=== PATIENT | male | born 1950 | race Caucasian/White ===

== ENCOUNTER 2023-07-28 08:25 | Observation (INO) | payer MEDICARE, OTHER, SELFPAY ==
[2023-07-28] VITALS (10 sets, daily range): BP systolic 115–149; BP diastolic 64–89; PULSE 63–79; RESP 15–26; TEMP 36.5–36.7; O2SAT 95–99; BMI 31.4
--- NOTE | 2023-07-28 08:46 | CT_ITS ---
WS: [id number] CT HEAD NONCONTRAST HISTORY: near syncope/headache TECHNIQUE: Contiguous axial imaging performed through the brain in 3 mm imaging. Bone and soft tissue windows. Sagittal and coronal reformats reviewed. All CT scans at [facility] use at least on e of these dose optimization techniques: automated exposure control; mA and/or kV adjustment per gail ent size (includes targeted exams where dose is matched to clinical indication); or iterative reconst ruction. DLP: 1051.43 mGy.cm COMPARISON: 09/18/2013 Area of decreased attenuation involving the inferior medial RIGHT temporal lobe. There is no associat ed hemorrhage. There is loss of the kim-white matter differentiation. There is an additional smaller area of decreased attenuation in the RIGHT cerebellum. No additional abnormalities. There is mild vo lume loss and small vessel ischemic disease otherwise. There is near very increased density in the region of the RIGHT posterior cerebral artery which appea rs calcified and may be from old thrombus which is calcified. Ventricles: Normal size with no hydrocephalus. No inferior displacement of the cerebellar tonsils. Paranasal sinuses: As visualized are clear. Mastoid air cells: Well pneumatized. Calvarium and scalp: Skull is intact with no soft tissue edema or swelling. IMPRESSION: 1. No acute intracranial hemorrhage. 2. Subacute to remote RIGHT inferomedial temporal lobe infarct. This is from a branch of the RIGHT PC A. 3. Additional subacute to remote infarct involving a portion of the RIGHT posterior superior cerebell um. 4. Mild volume loss and atrophy and small vessel ischemic disease. CT/CT head wo con* [id number] Recommendation: Follow-up MRI brain. Notified Wei Fulton DO at 07/28/2023 10:04 AM.
--- NOTE | 2023-07-28 08:52 | ECG_ITS ---
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 Measurements Intervals [place] Rate: 71 P: 70 PA: 158 QRS: 71 QRSD: 93 T: 52 QT: 389 QTc: 425 Interpretive Statements SINUS RHYTHM WITH OCCASIONAL SUPRAVENTRICULAR PREMATURE COMPLEXES No previous ECG available for comparison Electronically Signed On 07-28-2023 10:10:14 CDT by Carlita Soriano M.D. [id number]
--- NOTE | 2023-07-28 08:54 | ED_ITS ---
HPI - Dizziness General: Chief Complaint: Dizziness Stated Complaint: dizziness/headache Time Seen by Provider: 07/28/23 08:49 Source: patient Mode of arrival: ambulatory History of Present Illness: HPI Narrative: 72-year-old male presents emergency room with lightheadedness dizziness this began 2 days ago sudden onset of dizziness and near syncopal episode while walking. He did not really fall he was able to get himself to the ground without falling since then has had a bad headache with intermittent dizziness is better when he lays still and worse when he tries to move his head or walk. He has been unsteady with his gait. He has not had any nausea or vomiting associated with this. He is not on any anticoagulants no falls or head trauma. MD elicited complaint: dizziness and lightheadedness Onset (ago): day(s) (2) Timing: sudden onset Severity: severe Description: room spinning and difficulty walking Exacerbating factors: movement/ambulation and change in body position Relieving factors: remaining still Associated symptoms: Denies abnormal vaginal bleeding, change in hearing, chest pain, chills, cough, diaphoresis, ear discharge, ear pressure, fevers/chills, headache(s), malaise, nausea, nasal congestion, palpitations, rash, short of breath, syncope, tinnitus, vomiting or weakness Associated neuro symptoms: Deny confusion, difficulty speaking, dysphagia, diplopia, extremity weakness, facial numbness, facial weakness, gait changes, numbness in extremities or visual changes Review of Systems Const: Denies: fever(s), chills, malaise or diaphoresis ENMT: Denies: ear discharge, change in hearing, tinnitus or nasal congestion Card: Denies: chest pain, palpitations or syncope Resp: Denies: dyspnea GI: Denies: abdominal pain, nausea, vomiting or dysphagia : Denies: dysuria, urinary frequency or urinary urgency Musc: Denies: neck pain or back pain Skin/Breast: Denies: rash Neuro: Denies: headache(s), numbness in extremities or confusion PFS ED PFSH: Medical History (Updated 07/28/23 @ 15:42 by Wei Fulton DO) Hypertension Seizure Remote history, last seizure 1971 Tobacco dependency Surgical History (Updated 07/28/23 @ 12:47 by Romaine Pepe MD) History of hernia surgery Family History (Updated 07/28/23 @ 12:47 by Romaine Pepe MD) Denies family history of Stroke Social History (Updated 07/28/23 @ 12:48 by Romaine Pepe MD) Smoking and tobacco/nicotine status: current every day tobacco/nicotine user Alcohol intake: never Physical Exam Const: COMMON NORMALS: no acute distress GENERAL APPEARANCE: cooperative and comfortable ORIENTATION/CONSCIOUSNESS: Yes awake, Yes oriented to person, Yes oriented to place and Yes oriented to time HENMT: COMMON NORMALS: normocephalic, atraumatic and hearing grossly normal bilaterally HEAD & SCALP: normocephalic and atraumatic Resp: COMMON NORMALS: normal respiratory effort, No retractions, No use of accessory muscles and clear to auscultation bilaterally AUSCULTATION: clear to auscultation bilaterally Cardio: COMMON NORMALS: regular rate, regular rhythm and No murmurs present (Cardio) RATE: regular rate RHYTHM: regular rhythm GI: COMMON NORMALS: Soft to palpation and No hepatosplenomegaly present AUSCULTATION: Yes normoactive bowel sounds PALPATION: Yes Soft to palpation, No Tenderness to palpation present (GI), No Guarding due to palpation present (GI) and Yes No hepatosplenomegaly present Extremity: COMMON NORMALS: normal to inspection, capillary refill normal, no clubbing, cyanosis or edema, no calf tenderness and no pedal edema Neuro: SENSORIUM/ORIENTATION: Yes oriented to person, Yes oriented to place and Yes oriented to time Skin: COMMON NORMALS: no rashes or lesions noted GENERAL SKIN EXAM: no rashes or lesions noted Course Vital Signs: Vital signs: Vital Signs Temperature 97.8 F 07/28/23 14:57 Pulse Rate 78 07/28/23 15:12 Respiratory Rate 16 07/28/23 15:12 Blood Pressure 127/64 07/28/23 14:57 Pulse Oximetry 97 07/28/23 15:12 Oxygen Delivery Me thod Room Air 07/28/23 15:12 MDM - Dizziness Medical Decision Making Patient when lying down has no ataxia when tries to walk has some difficulty and also sitting up incurs dizziness with head movement itself does not. CT shows subacute posterior stroke also a right temporal stroke. He has no symptoms of the right temporal stroke. Discussed findings with Dr. Cornelius from radiology. He is outside the window for any treatment either embolectomy or thrombolysis. Will admit for further evaluation and initiation of therapies. Discussed with hospitalist orders written. Medical Records I reviewed the patient's medical records. Lab Data I reviewed the patient's lab results. 07/28/23 09:00 07/28/23 09:[address] 07/28/23 08:46 Recommendation: Follow-up MRI brain. Notified Wei Fulton DO at 07/28/2023 10:04 AM. Laboratory Results WBC 4.47 10^3/uL (3.29-11.43) 07/28/23 09:00 RBC 4.88 10^6/uL (3.85-5.65) 07/28/23 09:00 Hgb 16.20 g/dL (11.27-16.99) 07/28/23 09:00 Hct 46.1 % (37-53) 07/28/23 09:00 MCV 94.5 fl (82-101) 07/28/23 09:00 MCH 33.2 pg (27-33) H 07/28/23 09:00 MCHC 35.1 g/dL (30-55) 07/28/23 09:00 RDW 13.8 % (12.1-15.1) 07/28/23 09:00 Plt Count 220 10^3/cmm (157-399) 07/28/23 09:00 MPV 8.4 fL (7.4-10.4) 07/28/23 09:00 Neut % (Auto) 68.2 % 07/28/23 09:00 Lymph % (Auto) 19.5 % 07/28/23 09:00 [place] % (Auto) 10.1 % 07/28/23 09:00 Eos % (Auto) 1.1 % 07/28/23 09:00 Baso % (Auto) 0.9 % 07/28/23 09:00 Neut # (Auto) 3.05 10^3/uL (1.8-7.7) 07/28/23 09:00 Lymph # (Auto) 0.9 10^3/uL (0.8-4.8) 07/28/23 09:00 [place] # (Auto) 0.5 10^3/uL (0.2-0.9) 07/28/23 09:00 Eos # (Auto) 0.1 10^3/uL (0.0-0.8) 07/28/23 09:00 Baso # (Auto) 0.0 10^3/uL (0.0-0.1) 07/28/23 09:00 Nucleated RBC % (auto) 0 % 07/28/23 09:00 Nucleated RBCs # 0.0 /100WBC 07/28/23 09:00 Sodium 135 mmol/L (136-145) L 07/28/23 09:00 Potassium 3.1 mmol/L (3.5-5.1) L 07/28/23 09:00 Chloride 100 mmol/L (98-107) 07/28/23 09:00 Carbon Dioxide 27 mmol/L (22-29) 07/28/23 09:00 Anion Gap 11.1 (5-19) 07/28/23 09:00 BUN 9 mg/dL (8-23) 07/28/23 09:00 Creatinine 0.8 mg/dL (0.7-1.2) 07/28/23 09:00 GFR Calculation Not Reportable 07/28/23 09:00 Glucose 100 mg/dL (65-115) 07/28/23 09:00 Calculated Osmolality 279 mOsm/kg (285-295) L 07/28/23 09:00 Calcium 8.8 mg/dL (8.5-10.5) 07/28/23 09:00 Magnesium 1.8 mg/dL (1.7-2.3) 07/28/23 09:00 Total Bilirubin 0.8 mg/dL (0.15-1.2) 07/28/23 09:00 AST 14 U/L (0-40) 07/28/23 09:00 ALT 7 U/L (0-41) 07/28/23 09:00 Alkaline Phosphatase 52 U/L (40-130) 07/28/23 09:00 Total Protein 6.3 g/dL (6.6-8.7) L 07/28/23 09:00 Albumin 3.6 g/dL (3.5-5.2) 07/28/23 09:00 Globulin 2.7 g/dL (1.3-4.6) 07/28/23 09:00 TSH 0.70 uIU/mL (0.27-4.20) 07/28/23 09:00 Urine Color Yellow (Yellow) 07/28/23 09:54 Urine Appearance Clear (CLEAR) 07/28/23 09:54 Urine pH 7 (5-7) 07/28/23 09:54 Ur Specific [place] 1.015 (1.005-1.030) 07/28/23 09:54 Urine Protein Neg (Negative) 07/28/23 09:54 Urine Glucose (UA) Norm (Normal) 07/28/23 09:54 Urine Ketones Negative (Negative) 07/28/23 09:54 Urine Blood Neg (Negative) 07/28/23 09:54 Urine Nitrate Negative (Negative) 07/28/23 09:54 Urine Bilirubin Neg (Negative) 07/28/23 09:54 Urine Urobilinogen Norm mg/dL (Negative) 07/28/23 09:54 Ur Leukocyte Esterase Negative (Negative) 07/28/23 09:54 All radiology interpretation(s) finalized by discharge Discharge Plan Discharge Patient Disposition: Admitted As Inpatient Admit Provider: Romaine Pepe Clinical Impression: Cerebellar stroke Condition: Stable Coding Level of Care Code 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
[2023-07-28 09:07] LABS: Basophils % 0.9 %; Eosinophils # 0.1 10^3/uL (0.0-0.8); Eosinophils % 1.1 %; Hematocrit 46.1 % (37-53); Lymphocytes # 0.9 10^3/uL (0.8-4.8); Lymphocytes % 19.5 %; Mean Corpuscular HGB Conc 35.1 g/dL (30-55); Mean Corpuscular Hemoglobin 33.2 pg (27-33); Mean Corpuscular Volume 94.5 fl (82-101); Mean Platelet Volume 8.4 fL (7.4-10.4); Monocytes # 0.5 10^3/uL (0.2-0.9); Monocytes % 10.1 %; Neutrophils # 3.05 10^3/uL (1.8-7.7); Neutrophils % 68.2 %; Nucleated Red Blood Cells % 0 %; Platelet Count 220 10^3/cmm (157-399); Red Blood Count 4.88 10^6/uL (3.85-5.65); Red Cell Distribution Width 13.8 % (12.1-15.1); White Blood Count 4.47 10^3/uL (3.29-11.43)
[2023-07-28 09:27] LABS: Alanine Aminotransferase 7 U/L (0-41); Albumin Level 3.6 g/dL (3.5-5.2); Alkaline Phosphatase 52 U/L (40-130); Anion Gap 11.1 (5-19); Aspartate Amino Transferase 14 U/L (0-40); Blood Urea Nitrogen 9 mg/dL (8-23); Calcium 8.8 mg/dL (8.5-10.5); Carbon Dioxide 27 mmol/L (22-29); Chloride 100 mmol/L (98-107); Globulin 2.7 g/dL (1.3-4.6); Glucose 100 mg/dL (65-115); Osmolality Calculated 279 mOsm/kg (285-295); Potassium 3.1 mmol/L (3.5-5.1); Sodium 135 mmol/L (136-145); Total Bilirubin 0.8 mg/dL (0.15-1.2); Total Protein 6.3 g/dL (6.6-8.7)
[2023-07-28 10:27] LABS: Add Urine Microscopic? NO; Charge for UA Resulting for Rev
[2023-07-28 10:36] LABS: Urine Appearance Clear (CLEAR); Urine Color Yellow (Yellow)
[2023-07-28 10:37] LABS: Bilirubin Urine Neg (Negative); Blood Urine Neg (Negative); Glucose Urine UA Norm (Normal); Ketones Urine Negative (Negative); Leukocyte Esterase Urine Negative (Negative); Nitrate Urine Negative (Negative); Protein Urine Neg (Negative); Specific Gravity, Urine 1.015 (1.005-1.030); Urobilinogen Urine Norm (Negative); pH Urine 7 (5-7)
[2023-07-28] MEDS: aspirin 81 mg Chew Tablet 324 MG PO (11:16)
--- NOTE | 2023-07-28 12:16 | P.HP_ITS ---
Documented by User: Catia Willett 07/28/23 13:09 Providers/Chief Complaint Admitting Physician: Romaine Pepe MD Primary Care Provider: Hollis Leach DO Chief Complaint: dizziness/headache/vision impairment History of Present Illness Adan Meza is a 72 year old male who presented to the emergency department for weakness, dizziness, and headache. Friday, Mr. Meza stood up to turn his TV off when he started to feel weak in his legs and off balance . Without loss of consciousness, he fell to the ground. He denies any injuries that came from the fall. Since this transpired, he says he has been able to move around his house without much trouble, but he has continued to have consistent headaches described as tension headaches that only improve minimally with ibuprofen but are otherwise constant. He also states he will give fuzzy lines in his vision at times, but denies any other visual symptoms and has no photophobia. He has been nauseated once, but has not vomited. He is without chest pain, shortness of breath, abdominal pain, or any concerns of weakness currently. 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 In the ED, he got a CT of his head while in the ED and a 325 aspirin. Review of Systems General: Reports: 10 or more systems reviewed and unremarkable except in HPI and below Const: Denies: fever(s) or chills Eyes: Reports: blurry vision; Denies: photophobia Card: Denies: chest pain, palpitations or edema Resp: Denies: dyspnea GI: Reports: nausea; Denies: abdominal pain, vomiting, diarrhea, constipation or hematochezia : Denies: difficulty urinating or dysuria Musc: Denies: neck pain Neuro: Reports: headache(s) and dizziness; Denies: numbness in extremities, weakness in extremities, sensory changes, difficulty walking or Slurred speech present Medications/Allergies Home Medications Medication Instructions Recorded Confirmed Last Taken Type albuterol sulfate 90 mcg/actuation 2 inh inhalation BID PRN Shortness 07/28/23 07/28/23 Unknown History aerosol inhaler (Ventolin HFA) Of Breath hydrochlorothiazide 25 mg tablet 25 mg PO DAILY 07/28/23 07/28/23 Unknown History sildenafil (pulm.hypertension) 20 See Rx Instructions .Route .COMPLEX 07/28/23 07/28/23 Unknown History mg tablet Allergies Allergy/AdvReac Type Severity Reaction Status Date / Time No Known Allergies Allergy Verified 07/28/23 08:45 PFSH Acute PFSH: Medical History (Updated 07/28/23 @ 12:51 by Romaine Pepe MD) Hypertension Seizure Remote history, last seizure 1972 Tobacco dependency Surgical History (Updated 07/28/23 @ 12:47 by Romaine Pepe MD) History of hernia surgery Family History (Updated 07/28/23 @ 12:47 by Romaine Pepe MD) Denies family history of Stroke Social History (Updated 07/28/23 @ 12:48 by Romaine Pepe MD) Smoking and tobacco/nicotine status: current every day tobacco/nicotine user Alcohol intake: never Vitals/I&O/Wt Last Vital Signs Temp 98.0 F 07/28/23 08:41 Pulse 68 07/28/23 11:00 Resp 26 H 07/28/23 10:15 BP 133/87 07/28/23 11:00 Pulse Ox 99 07/28/23 11:00 O2 Del Method Room Air 07/28/23 08:41 Weight last 48 hrs Weight 88.451 kg Physical Exam Narrative: General: pt is alert, cooperative and conversant. He is accompanied by his brother in law. Neck: supple, no lymphadenopathy, no thyromegaly. Cardiac: normal rate, rhythm. No murmurs appreciated. Respiratory: clear to auscultation. Equal chest expansion. Abdomen: normoactive bowel sounds in all 4 quadrants. No abdominal tenderness, no obvious organomegaly. : deferred. Extremites: 2+ pulses in upper and lower extremities. Brisk capillary refill. Skin: no cyanosis, bruising, edema. Neurologic: oriented x 4, CN II-XII intact. Cerebellar function intact. 5/5 muscle strength in upper and lower extremities. Normal sensation in upper and lower extremities. Data 07/28/23 09:00 07/28/23 09:00 Other Labs: Protein 6.3 LFTs normal. TSH ordered. UA negative. 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 MR angio head and neck with/without contrast ordered. CV echo ordered. EKG by my read shows sinus rhythm with occasional PACs, normal axis, intervals. 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 Possibly experiencing upper extremity ataxia as well. Additional stroke of concern was in the right inferior medial temporal lobe infarct. Ordered MR angio of head and neck with and without contrast per radiology recommendation. They are able to do this exam today, therefore a CTA of the head and neck are not warranted. CXR ordered for part of routine stroke work-up Telemetry ordered to monitor for signs of arrhythmias that could predispose to stroke. Consider Event monitor on discharge. CV echo ordered to assess for any predisposing factors of heart that could lead to stroke, valvular abnormalities, thrombus seen Lipid panel, TSH ordered. Start aspirin tomorrow (already given today), plavix, and statin for stroke prophylaxis. Hold BP medications for permissive HTN for possible stroke. CBC, BMP daily Hydration Patient has complained of headache. This is likely secondary to CVA. After permissive hypertension likely restart medication for blood pressure tomorrow if blood pressure is elevated. Note that he was only on hydrochlorothiazide. Arrange for therapy evaluations. (2) Hypokalemia: K+ low in ED. Supplement one time with 40 of KCl PO. Will continue to monitor for future need for further supplementation. BMP daily. (3) Tobacco dependency: Pt with history of smoking. Will provide education of tobacco effect on stroke prevention. Provide pt with nicotine patches as needed for smoking cessation. Coding Level of Care Code 26368 Diagnoses Cerebellar stroke I63.9 Hypokalemia E87.6 Tobacco dependency F17.200 Time Spent (min) 47 Documented by User: Romaine Pepe MD 07/28/23 13:10 Providers/Chief Complaint Chief Complaint: dizziness/headache/vision impairment Medications/Allergies Home Medications Medication Instructions Recorded Confirmed Last Taken Type albuterol sulfate 90 mcg/actuation 2 inh inhalation BID PRN Shortness 07/28/23 07/28/23 Unknown History aerosol inhaler (Ventolin HFA) Of Breath hydrochlorothiazide 25 mg tablet 25 mg PO DAILY 07/28/23 07/28/23 Unknown History sildenafil (pulm.hypertension) 20 See Rx Instructions .Route .COMPLEX 07/28/23 07/28/23 Unknown History mg tablet Allergies Allergy/AdvReac Type Severity Reaction Status Date / Time No Known Allergies Allergy Verified 07/28/23 08:45 PFSH Acute PFSH: Medical History (Updated 07/28/23 @ 12:51 by Romaine Pepe MD) Hypertension Seizure Remote history, last seizure 1971 Tobacco dependency Surgical History (Updated 07/28/23 @ 12:47 by Romaine Pepe MD) History of hernia surgery Family History (Updated 07/28/23 @ 12:47 by Romaine Pepe MD) Denies family history of Stroke Social History (Updated 07/28/23 @ 12:48 by Romaine Pepe MD) Smoking and tobacco/nicotine status: current every day tobacco/nicotine user Alcohol intake: never Physical Exam Narrative: General: pt is alert, cooperative and conversant. He is accompanied by his brother in law. Neck: supple, no lymphadenopathy, no thyromegaly. Cardiac: normal rate, rhythm. No murmurs appreciated. Respiratory: clear to auscultation. Equal chest expansion. Abdomen: normoactive bowel sounds in all 4 quadrants. No abdominal tenderness, no obvious organomegaly. : deferred. Extremites: 2+ pulses in upper and lower extremities. Brisk capillary refill. Skin: no cyanosis, bruising, edema. Neurologic: oriented x 4, CN II-XII intact. Cerebellar function intact. 5/5 musc le strength in upper and lower extremities. Normal sensation in upper and lower extremities. Slightly dizzy concerned about being dizzy upon standing but reports it is not present at this time when he stood. Orthostatics negative in the emergency department. Data 07/28/23 09:00 07/28/23 09:00 Other Labs: Protein 6.3 LFTs normal. TSH ordered. UA negative. 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 MR angio head and neck with/without contrast ordered. CV echo ordered. EKG by my read shows sinus rhythm with occasional PACs, normal axis, intervals. Chest x-ray was ordered which I will review as well. 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 Possibly experiencing upper extremity ataxia as well. Additional stroke of concern was in the right inferior medial temporal lobe infarct. Ordered MR angio of head and neck with and without contrast per radiology recommendation. They are able to do this exam today, therefore a CTA of the head and neck are not warranted. CXR ordered for part of routine stroke work-up Telemetry ordered to monitor for signs of arrhythmias that could predispose to stroke. Consider Event monitor on discharge. CV echo ordered to assess for any predisposing factors of heart that could lead to stroke, valvular abnormalities, thrombus seen Lipid panel, TSH ordered. Start aspirin tomorrow (already given today), plavix, and statin for stroke prophylaxis. Hold BP medications for permissive HTN for possible stroke. CBC, BMP daily Hydration Patient has complained of headache. This is likely secondary to CVA. After permissive hypertension likely restart medication for blood pressure tomorrow if blood pressure is elevated. Note that he was only on hydrochlorothiazide. (2) Hypokalemia: K+ low in ED. Supplement one time with 40 of KCl PO. Will continue to monitor for future need for further supplementation. BMP daily. Check magnesium level (3) Tobacco dependency: Plan Full code Lovenox for DVT prophylaxis Patient was seen with the medical student, exam was performed, and this note was fashioned with the medical student. Attestations Medical Necessity Statement*: Will require less than 2 midnight stay in for evaluation and treatment of CVA Diagnoses Cerebellar stroke I63.9 Hypokalemia E87.6 Tobacco dependency F17.200 Time Spent (min) 47
--- NOTE | 2023-07-28 12:30 | USCV_ITS ---
Adan Meza Age: 72 Gender: M : 1950 Exam Date: 07/28/2023 14:59 Ordering Phys: Romaine Pepe MD Technologist: Ariel Muhammad Exam Location: [facility] [place] Indication: cva BP: 123 / 69 HR: 66 Rhythm: Sinus Technical Quality: Adequate MEASUREMENTS (Male / Female) Normal Values 2D ECHO LV Diastolic Diameter PLAX 4.4 cm 4.2 - 5.9 / 3.9 - 5.3 cm LV Systolic Diameter PLAX 2.9 cm IVS Diastolic Thickness 1.0 cm 0.6 - 1.0 / 0.6 - 0.9 cm IVS Systolic Thickness 1.6 cm LVPW Diastolic Thickness 1.2 cm 0.6 - 1.0 / 0.6 - 0.9 cm LVPW Systolic Thickness 1.3 cm LVOT Diameter 2.0 cm LV Ejection Fraction 2D Teich 62.7 % LV Ejection Fraction MOD 2C 74.3 % LV Ejection Fraction 2C AL 74.9 % LA Diameter 3.7 cm IVC Diameter 1.3 cm M-MODE Aortic Annulus Diameter 3.7 cm LA Ao Ratio MM 1.1 MV E Point Septal Separation 1.6 cm DOPPLER AV Peak Velocity 142.7 cm/s LVOT Peak Velocity 131.0 cm/s AV Area Cont Eq vti 3.6 cm squared AV Area Cont Eq pk 3.0 cm squared MV Area PHT 1.8 cm squared Mitral E to A Ratio 0.9 MV E' Velocity 72.5 cm/s Mitral E to MV E' Ratio 23.7 Mitral E to LV E' Lateral Ratio 30.4 Mitral E to LV E' Septal Ratio 19.7 TR Peak Velocity 161.7 cm/s TR Peak Gradient 10.5 mmHg TV Peak E Velocity 78.0 cm/s Right Atrial Pressure 3.0 mmHg Pulmonary Artery Systolic Pressu 13.5 mmHg RV Acceleration Time 0.1 s FINDINGS Left Ventricle Left ventricle is normal in size. LV systolic function is normal with EF of 60 to 65%. No regional wall motion abnormalities are seen. Grade 1 diastolic dysfunction Right Ventricle Normal in size and function Right Atrium Normal in size Left Atrium Dilated Mitral Valve Severe mitral annular calcification. Trace mitral regurgitation. Moderate to severe mitral stenosis with mean gradient across mitral valve of 11mmHg. Mitral valve area by pressure half time of 1.77cm2 Aortic Valve Grossly normal. no significant stenosis. Tricuspid Valve Mild tricuspid regurgitation. Insufficient TR jet to calculate RVSP Pulmonic Valve Not well visualized Pericardium Normal Aorta Normal in size IVC Appears to be normal CONCLUSIONS LV systolic function is normal with EF of 60-65%. Grade 1 diastolic dysfunction Left atrial dilation Moderate to severe mitral stenosis with mean gradient across mitral valve of 11 mmHg and mitral valve area of 1.77cm2. Mild tricuspid regurgitation No comparison studies are available. Gatito Conti MD (Electronically Signed) Final Date: 28 July 2023 16:49 S
--- NOTE | 2023-07-28 12:36 | MR_ITS ---
WS: [id number] MRI HEAD WITHOUT CONTRAST TECHNIQUE: Sagittal T1, T2 axial, T2 axial FLAIR, axial and coronal T1 images, axial susceptibility w eighted imaging, axial diffusion weighted images, and coronal T2 images were obtained. CLINICAL INFORMATION: CVA COMPARISON: CT earlier today FINDINGS: Restricted diffusion compatible with acute ischemia involving the posterior medial temporal lobe exte nding into the parahippocampal gyrus. Additional restricted diffusion involving the superior posterio r parasagittal cerebellum. Additional small focus of restricted diffusion involving the RIGHT guzman radiata. Findings compatible with acute ischemia. This corresponds to the low-attenuation changes on the prior CT. Moderate edema in the RIGHT posterior mesial temporal lobe with mild localized mass effect. Mild ava a in the RIGHT parasagittal cerebellum. Fourth ventricle remains patent. Mild mass effect on the RIGH T temporal horn. Mild small vessel changes. Mild parenchymal volume loss. Evidence of chronic lacunar infarcts in the LEFT cerebellum. Normal vascular flow voids at the skull base. No extra-axial fluid collections. Para nasal sinuses are well aerated. Mastoid air cells are well aerated. Normal posterior nasopharynx. No hemosiderin on susceptibility-weighted images. Normal optic chiasm and pituitary infundibulum. IMPRESSION: 1. Acute ischemia involving the RIGHT posterior medial temporal lobe extending into the parahippocam pal gyrus and undersurface of the mesial temporal lobe. Moderate associated edema with mild localized mass effect. 2. Additional areas of acute ischemia involving the parasagittal superior cerebellum. 3. Additional punctate focus of acute ischemia involving the RIGHT centrum semiovale. 4. No midline shift. No hydrocephalus. 5. Mild small vessel changes with mild parenchymal volume loss. 6. Evidence of chronic lacunar infarcts in the LEFT cerebellum. Notified Romaine Pepe MD at 07/28/2023 4:16 PM.
--- NOTE | 2023-07-28 12:43 | MR_ITS ---
WS: [id number] MRA HEAD TECHNIQUE: Axial 3-D TOF images obtained with axial images and axial, sagittal, and coronal 2-D refor matted images. CLINICAL INFORMATION: cva COMPARISON: None. FINDINGS: Distal vertebral arteries are patent. Basilar artery is patent. Poor vascularity to the RIGHT [employer] ter ritory with attenuation of the RIGHT proximal [employer] vessel. Poor flow in the mid and distal segments. R IGHT superior cerebellar artery appears patent. Irregularity with some attenuation of the distal supe rior cerebellar artery concordant with the superior cerebellar infarct seen on the head MRI. Mild intracranial atheromatous disease. Severe stenosis at the LEFT P1-2 junction. Distal LEFT [employer] ve ssels are patent. Both ICAs are patent at the skull base. Normal vascularity to the TUNG and MCA territories bilaterally . No proximal flow-limiting stenosis. IMPRESSION: 1. Attenuation of the RIGHT [employer] near the P1-2 junction with poor flow distally in the [employer] territory corresponding to the infarct seen on the head MRI. Focal calcification in this area on the CT. Consid er embolic etiologies. 2. RIGHT superior cerebellar artery is patent with some attenuation of the vessel distally correspon ding to the superior cerebellar infarct seen on the head MRI. 3. Severe stenosis at the LEFT P1-2 segment. LEFT distal [employer] vessels are patent. 4. No proximal flow-limiting stenosis in the MCA or TUNG territories 5. Mild intracranial atheromatous disease. Notified Romaine Pepe MD at 07/28/2023 4:28 PM.
--- NOTE | 2023-07-28 12:43 | MR_ITS ---
WS: [id number] MRA CAROTID WITHOUT AND WITH GADOLINIUM ENHANCEMENT TECHNIQUE: Axial 2-D AND 3D TOF and gadolinium bolus images obtained with axial images and axial, sag ittal, and coronal 2-D reformatted images. CLINICAL INFORMATION: cva COMPARISON: None. FINDINGS: Some images degraded by motion. RIGHT: RIGHT common carotid artery is patent. No significant RIGHT ICA stenosis. RIGHT ICA is patent to the skull base. LEFT: LEFT common carotid artery is patent. No significant LEFT ICA stenosis. LEFT ICA is patent to t he skull base. LEFT dominant vertebral artery. Smaller but patent RIGHT vertebral artery. Vertebral arteries are pat ent to the basilar junction. Normal branching aortic arch anatomy. IMPRESSION: Some images degraded by motion 1. No significant ICA stenosis bilaterally. 2. LEFT dominant vertebral artery. Smaller but patent RIGHT vertebral artery. Vertebral arteries are patent to the basilar junction.
--- NOTE | 2023-07-28 12:52 | XR_ITS ---
WS: [id number] Exam: XR chest 1V portable [id number] Date/Time of Exam: 07/28/2023 12:53 PM Reason For Exam: CVA Comparison 01/02/2015. The lungs are fully expanded and clear. Heart size is top limits normal. No pleural effusions. The me diastinum and bony thorax are unremarkable. IMPRESSION: 1. No acute cardiopulmonary finding.
[2023-07-28 13:30] LABS: Magnesium 1.8 mg/dL (1.7-2.3)
--- NOTE | 2023-07-28 16:25 | PC.OT ---
OT EVALUATION ATTEMPTED. PATIENT OFF FLOOR/UNIT. WILL ATTEMPT AGAIN AT A LATER TIME.
[2023-07-28] MEDS: potassium chloride ER 20 mEq Tablet 40 MEQ PO (16:44)
[2023-07-28] MEDS: enoxaparin 40 mg/0.4 mL Syringe SUBCUT (16:44)
[2023-07-28] MEDS: sodium chloride 0.9% 1,000 ML 100 ML IV (16:44)
[2023-07-28] MEDS: atorvastatin 40 mg Tablet PO (19:48)
[2023-07-29] VITALS: BP 124/73; PULSE 86; RESP 18; TEMP 36.6; O2SAT 97
[2023-07-29] MEDS: sodium chloride 0.9% 1,000 ML 100 ML IV (02:33)
[2023-07-29 04:00] VITALS: BP 116/71; PULSE 72; RESP 17; TEMP 36.7; O2SAT 99
[2023-07-29 04:55] VITALS: PULSE 61
[2023-07-29 06:24] LABS: Basophils % 0.7 %; Eosinophils # 0.1 10^3/uL (0.0-0.8); Eosinophils % 1.7 %; Hematocrit 42.8 % (37-53); Lymphocytes # 1.2 10^3/uL (0.8-4.8); Lymphocytes % 28.4 %; Mean Corpuscular HGB Conc 34.6 g/dL (30-55); Mean Corpuscular Hemoglobin 32.8 pg (27-33); Mean Corpuscular Volume 94.9 fl (82-101); Mean Platelet Volume 8.7 fL (7.4-10.4); Monocytes # 0.5 10^3/uL (0.2-0.9); Monocytes % 12.3 %; Neutrophils # 2.38 10^3/uL (1.8-7.7); Neutrophils % 56.4 %; Nucleated Red Blood Cells % 0 %; Platelet Count 210 10^3/cmm (157-399); Red Blood Count 4.51 10^6/uL (3.85-5.65); Red Cell Distribution Width 13.7 % (12.1-15.1); White Blood Count 4.22 10^3/uL (3.29-11.43)
[2023-07-29 06:39] LABS: Estmated Average Glucose 100; Hemoglobin A1C 5.1 % (4.0-6.0)
[2023-07-29 06:41] LABS: Alanine Aminotransferase 6 U/L (0-41); Albumin Level 3.3 g/dL (3.5-5.2); Alkaline Phosphatase 45 U/L (40-130); Anion Gap 10.3 (5-19); Aspartate Amino Transferase 16 U/L (0-40); Blood Urea Nitrogen 8 mg/dL (8-23); Calcium 8.3 mg/dL (8.5-10.5); Carbon Dioxide 26 mmol/L (22-29); Chloride 104 mmol/L (98-107); Globulin 2.1 g/dL (1.3-4.6); Glucose 87 mg/dL (65-115); Osmolality Calculated 282 mOsm/kg (285-295); Potassium 3.3 mmol/L (3.5-5.1); Sodium 137 mmol/L (136-145); Total Bilirubin 0.8 mg/dL (0.15-1.2); Total Protein 5.4 g/dL (6.6-8.7)
[2023-07-29 06:43] LABS: Cholesterol 164 mg/dL (0-200); HDL Cholesterol 40 mg/dL (60-100); LDL Cholesterol Calculated 104 mg/dL (50-129); Triglycerides 98 mg/dL (0-150)
[2023-07-29 08:00] VITALS: BP 134/76; PULSE 83; RESP 16; TEMP 36.4; O2SAT 96
[2023-07-29] MEDS: aspirin 81 mg EC Tablet PO (08:17)
[2023-07-29] MEDS: potassium chloride ER 20 mEq Tablet 40 MEQ PO (08:17)
[2023-07-29] MEDS: clopidogrel 75 mg Tablet PO (08:17)
--- NOTE | 2023-07-29 08:40 | P.DS_ITS ---
Discharge Providers Date of Admission: 07/28/23 11:15 Date of Discharge: July 29, 2023 Attending Provider at Admission: Romaine Pepe MD Attending Provider at Discharge: Romaine Pepe MD Primary Care Provider: Hollis Leach DO Diagnoses at Discharge Discharge Diagnosis (1) Cerebellar stroke: Status: Acute (2) Hypokalemia: Status: Acute (3) Tobacco dependency: Status: Acute Reason for Visit Reason for Visit: dizziness/headache/vision impairment Hospital Course Hospital Course Adan is a 72-year-old white male who reported to the hospital with complaints of dizziness, gait instability, headache that had occurred 2 days prior to admission. On arrival to the emergency department, there was suspicion of stroke. EKG demonstrated sinus rhythm. CT showed no evidence of bleeding but a subacute to remote right inferior medial temporal lobe infarct and right posterior superior cerebellum infarct both in the region of the right [employer]. Follow-up MRI with MRA and neck MRA confirmed stroke, showed severe stenosis left P1/2 segment. No other flow-limiting stenosis was noted. Echo demonstrated moderate to severe mitral stenosis, preserved EF, valve area of 1.77 cm? and a gradient of 11. The day of discharge sinus rhythm was still noted on telemetry. He had no significant appreciable deficits. I arranged for an event monitor, follow-up with cardiology, follow-up with his primary, follow- up with neurology. He has been placed on Plavix, aspirin, statin on admission which we will continue at discharge. He had some issues with low potassium while in the hospital, and his hydrochlorothiazide was discontinued. Blood pressure was 134/76 on discharge. He was given an opportunity ask questions, and agreed with the plan. Physical Exam Narrative: General exam no distress Neurologic: No obvious focal deficits Cardiovascular regular rate and rhythm Lungs clear Abdomen is soft Extremities no cyanosis clubbing or edema Discharge Data Studies Completed and Pending Completed Studies During Hospitalization Category Date Time Status CT head wo con* [id number] Stat Cat Scan 07/28/23 08:46 Completed XR chest 1V portable [id number] Routine Exams 07/28/23 12:52 Completed MR angio head wo con [id number] Routine MRI 07/28/23 12:43 Completed MR angio neck w con* [id number] Routine MRI 07/28/23 12:43 Completed MR head wo con* [id number] Routine MRI 07/28/23 12:36 Completed CV. echo complete* [id number] Routine Ultrasound 07/28/23 12:30 Completed Radiology Impressions Head CT 07/28/23 08:46 Recommendation: Follow-up MRI brain. Notified Wei Fulton DO at 07/28/2023 10:04 AM. Laboratory Results WBC 4.22 10^3/uL (3.29-11.43) 07/29/23 05:59 RBC 4.51 10^6/uL (3.85-5.65) 07/29/23 05:59 Hgb 14.80 g/dL (11.27-16.99) 07/29/23 05:59 Hct 42.8 % (37-53) 07/29/23 05:59 MCV 94.9 fl (82-101) 07/29/23 05:59 MCH 32.8 pg (27-33) 07/29/23 05:59 MCHC 34.6 g/dL (30-55) 07/29/23 05:59 RDW 13.7 % (12.1-15.1) 07/29/23 05:59 Plt Count 210 10^3/cmm (157-399) 07/29/23 05:59 MPV 8.7 fL (7.4-10.4) 07/29/23 05:59 Neut % (Auto) 56.4 % 07/29/23 05:59 Lymph % (Auto) 28.4 % 07/29/23 05:59 [place] % (Auto) 12.3 % 07/29/23 05:59 Eos % (Auto) 1.7 % 07/29/23 05:59 Baso % (Auto) 0.7 % 07/29/23 05:59 Neut # (Auto) 2.38 10^3/uL (1.8-7.7) 07/29/23 05:59 Lymph # (Auto) 1.2 10^3/uL (0.8-4.8) 07/29/23 05:59 [place] # (Auto) 0.5 10^3/uL (0.2-0.9) 07/29/23 05:59 Eos # (Auto) 0.1 10^3/uL (0.0-0.8) 07/29/23 05:59 Baso # (Auto) 0.0 10^3/uL (0.0-0.1) 07/29/23 05:59 Nucleated RBC % (auto) 0 % 07/29/23 05:59 Nucleated RBCs # 0.0 /100WBC 07/29/23 05:59 Sodium 137 mmol/L (136-145) 07/29/23 05:59 Potassium 3.3 mmol/L (3.5-5.1) L 07/29/23 05:59 Chloride 104 mmol/L (98-107) 07/29/23 05:59 Carbon Dioxide 26 mmol/L (22-29) 07/29/23 05:59 Anion Gap 10.3 (5-19) 07/29/23 05:59 BUN 8 mg/dL (8-23) 07/29/23 05:59 Creatinine 0.6 mg/dL (0.7-1.2) L 07/29/23 05:59 GFR Calculation Not Reportable 07/29/23 05:59 Glucose 87 mg/dL (65-115) 07/29/23 05:59 Estimat Average Glucose 100 07/29/23 05:59 Hemoglobin A1c 5.1 % (4.0-6.0) 07/29/23 05:59 Calculated Osmolality 282 mOsm/kg (285-295) L 07/29/23 05:59 Calcium 8.3 mg/dL (8.5-10.5) L 07/29/23 05:59 Magnesium 1.8 mg/dL (1.7-2.3) 07/28/23 09:00 Total Bilirubin 0.8 mg/dL (0.15-1.2) 07/29/23 05:59 AST 16 U/L (0-40) 07/29/23 05:59 ALT 6 U/L (0-41) 07/29/23 05:59 Alkaline Phosphatase 45 U/L (40-130) 07/29/23 05:59 Total Protein 5.4 g/dL (6.6-8.7) L 07/29/23 05:59 Albumin 3.3 g/dL (3.5-5.2) L 07/29/23 05:59 Globulin 2.1 g/dL (1.3-4.6) 07/29/23 05:59 Triglycerides 98 mg/dL (0-150) 07/29/23 05:59 Cholesterol 164 mg/dL (0-200) 07/29/23 05:59 LDL Cholesterol, Calc 104 mg/dL (50-129) 07/29/23 05:59 HDL Cholesterol 40 mg/dL (60-100) L 07/29/23 05:59 LDL/HDL Ratio 2.60 RATIO (0.00-3.22) 07/29/23 05:59 Cholesterol/HDL Ratio 4.10 mg/dL (1.0-5.00) 07/29/23 05:59 TSH 0.70 uIU/mL (0.27-4.20) 07/28/23 09:00 Urine Color Yellow (Yellow) 07/28/23 09:54 Urine Appearance Clear (CLEAR) 07/28/23 09:54 Urine pH 7 (5-7) 07/28/23 09:54 Ur Specific [place] 1.015 (1.005-1.030) 07/28/23 09:54 Urine Protein Neg (Negative) 07/28/23 09:54 Urine Glucose (UA) Norm (Normal) 07/28/23 09:54 Urine Ketones Negative (Negative) 07/28/23 09:54 Urine Blood Neg (Negative) 07/28/23 09:54 Urine Nitrate Negative (Negative) 07/28/23 09:54 Urine Bilirubin Neg (Negative) 07/28/23 09:54 Urine Urobilinogen Norm mg/dL (Negative) 07/28/23 09:54 Ur Leukocyte Esterase Negative (Negative) 07/28/23 09:54 Vitals Last Vital Signs Temp 97.5 F L 07/29/23 08:00 Pulse 83 07/29/23 08:00 Resp 16 07/29/23 08:00 BP 134/76 07/29/23 08:00 Pulse Ox 96 07/29/23 08:00 O2 Del Method Room Air 07/29/23 08:00 Discharge Plan Discharge Patient Disposition: Home Condition: Stable Prescriptions: New clopidogrel 75 mg Tablet 75 mg PO DAILY Qty: 30 0RF aspirin 81 mg Tablet,Delayed Release (Dr/Ec) 81 mg PO DAILY Qty: 30 0RF atorvastatin 40 mg Tablet 40 mg PO BEDTIME Qty: 30 0RF Continued Ventolin HFA 90 mcg/actuation HFA aerosol inhaler 2 inh INHALATION BID PRN (Reason: Shortness Of Breath) Discontinued hydrochlorothiazide 25 mg tablet 25 mg PO DAILY sildenafil (pulm.hypertension) 20 mg tablet See Rx Instructions .ROUTE .COMPLEX Rx Instructions: TAKE 1-5 TABLETS BY MOUTH DAILY NEEDED FOR SEX Discharge Orders: Discharge Order (Routine); Ordered 07/29/23 Ordered By: Romaine Pepe Other Ambulatory Orders: MCT/Event Monitor 21 Days (Routine) Timeframe: 1 Day Facility: [facility] - Location: Radiology Ordered By: Romaine Pepe Referrals: Vikas Keys MD [Physician] - 2 weeks (follow up CVA) Gatito Conti M.D [Physician] - 1 month (follow up mitral stenosis, CVA, event monitor) Hollis Leach DO [Primary Care Provider] - 4-7 days Discharge Diet: Cardiac Discharge Activity: Increase activity as tolerated Patient Instructions: Opioid Safety Activity Restrictions/Additional Instructions: Stop smoking Take all medicine as prescribed Follow-up with your primary care provider 3 to 5 days, neurology 2 weeks, cardiology 1 month Event monitor as outpatient Return for any concerns Discharge Attestations Time Spent in Discharge Care*: greater than 30 min Quality Metrics Clinical Quality Measures [ Cerebrovascular Accident { Contraindication to Antithrombotic: None; antithrombotic prescribed; Contraindication to Anticoagulation: Other (not indicated); Contraindication to Statin: None; Statin prescribed; Reason stroke education not provided: Stroke education provided to patient;}] Coding Level of Care Code 18937 Total time (in minutes) for Discharge: 37 Diagnoses Cerebellar stroke I63.9 Hypokalemia E87.6 Tobacco dependency F17.200
--- NOTE | 2023-07-29 08:46 | PC.CHAP ---
Pastoral Care Encounter/Spiritual Assessment Type of Contact [] Declined pill machine operator visit [] Patient/Family/Request visit [] Outpatient visit [] Follow-up visit [] Physician referral [] Code/Alert [x] Routine visit [] Staff referral [] Actively dying [] Patient sleeping [] Family support [] [] Out of room [] Palliative care [] [] Receiving care in room [] Pre-surgical visit [] Trauma [] Long length of stay [] ICU visit [] Other: Relational/Emotional Strength [x] Patient feels connected with others/family/visitors/staff [] Distress [] Loneliness/isolation [] Abandonment Spirituality of Patient [x] Person of Jaqui [] Attends Church of their Jaqui [x] Believes in Prayer [] Reads Bible or Shinto materials [] There are Spiritual issues to be addressed [employer] Publisher Interventions [x] Prayer [x] Active listening [] Non-anxious presence [x] Spiritual/emotional support [] Crisis/trauma care [] Spiritual counseling [] Bereavement support [] Provided bereavement packet [] Provided Bible/devotional materials [] Provided toy/stuffed animal, coloring book to patient or family member [] Provided Communion [] Anointing/Hood [] Salvation [x] Completed spiritual assessment [] Other: Impact on Illness or Injury [] Angry [] Fearful [] Anxious [] Often cries [] Exhaustion [] Unable to work [] Unable to attend episcopal [] Unable to walk/stand [] Unable to read [] Unable to drive [] Unable to eat/drink [] Unable to sleep [] Unable to be with family [] Patient intubated [] Other: Summary Time spent with patient 5 min
[2023-07-29 13:07] VITALS: BP 134/76; PULSE 83; RESP 16; TEMP 36.4; O2SAT 96
== END 2023-07-29 11:00 | disposition home or self-care (01) ==
LOC: ER 11:06 → MEDSURG 12:01
PROVIDERS: Admitting Provider Internal Medicine; Emergency Provider Family Medicine; PCP Internal Medicine; Visit Provider Internal Medicine
DX: I63.9 Cerebral infarction, unspecified (principal); R29.700 NIHSS score 0; E87.6 Hypokalemia; F17.200 Nicotine dependence, unspecified, uncomplicated; I05.0 Rheumatic mitral stenosis; I07.1 Rheumatic tricuspid insufficiency; I10 Essential (primary) hypertension
CPT/HCPCS: 36415; 70450; 70544; 70548; 70551; 71045; 80053; 80061; 81003; 83036; 83735; 84443; 85025; 92523; 93005; 93306; 96360; 96361; 96372; 97161; 97165; 99285; A9577; G0378; J1650; J7030

== ENCOUNTER → 2023-08-06 12:25 | Outpatient (BNVA) | payer MEDICARE, OTHER, SELFPAY | PROVIDERS: PCP Internal Medicine; Visit Provider Internal Medicine | DX: I05.0 Rheumatic mitral stenosis (principal); F17.200 Nicotine dependence, unspecified, uncomplicated; I63.9 Cerebral infarction, unspecified | CPT/HCPCS: 99204 ==

== ENCOUNTER → 2023-08-13 13:18 | Outpatient (BNVA) | payer MEDICARE, OTHER, SELFPAY | PROVIDERS: PCP Internal Medicine; Visit Provider Psychiatry & Neurology Neurology | DX: I63.89 Other cerebral infarction (principal); I67.2 Cerebral atherosclerosis; F17.200 Nicotine dependence, unspecified, uncomplicated; I10 Essential (primary) hypertension; Z79.82 Long term (current) use of aspirin | CPT/HCPCS: 99203 ==

== ENCOUNTER 2023-09-10 17:01 | Emergency (ER) | payer MEDICARE, OTHER, SELFPAY ==
[2023-09-10 17:07] VITALS: BP 166/91; PULSE 77; RESP 16; TEMP 37.1; O2SAT 98; BMI 32.3
--- NOTE | 2023-09-10 17:17 | CTR_ITS ---
PROCEDURE INFORMATION: Exam: CT Head Without Contrast Exam date and time: 09/10/2023 5:33 PM Age: 72 years old Clinical indication: Visual disturbance; Additional info: Vision loss TECHNIQUE: Imaging protocol: Computed tomography of the head without contrast. Radiation optimization: All CT scans at this facility use at least one of these dose optimization techniques: automated exposure control; mA and/or kV adjustment per patient size (includes targeted exams where dose is matched to clinical indication); or iterative reconstruction. REPORTING DATA: Count of CT and Cardiac NM exams in prior 12 months: This patient has received [address] and 0 known cardiac nuclear medicine studies in the 12 months prior to the current study. COMPARISON: MR head wo con* [id number] 07/28/2023 3:35 PM RADIATION DOSE METRICS: Total DLP (mGy-cm): 1075 FINDINGS: Brain: There is hypodensity involving the medial right temporal lobe not significantly changed from previous examination corresponding with the area of the infarct demonstrated on 07/28/2023. This is less prominent than on the prior CT scan representing some evolution of the infarct. There is a small area of encephalomalacia superior left cerebellar hemisphere less prominent than the abnormality seen on 07/28/2023. There is no intracranial mass or hemorrhage. There is no extra-axial fluid collection. Cerebral ventricles: Ventricles are within normal limits. Paranasal sinuses: Visualized sinuses are unremarkable. No fluid levels. Mastoid air cells: Visualized mastoid air cells are well aerated. Bones/joints: Unremarkable. No acute fracture. Soft tissues: Unremarkable. CT/CT head wo con* [id number] IMPRESSION: Evolving infarcts in the right posterior cerebral artery territory. No acute infarction is identified.
--- NOTE | 2023-09-10 17:20 | ED_ITS ---
Documented by User: Quincy Delarosa MD 09/10/23 17:45 HPI - Eye Problem 2 General: Chief complaint: Eye Problems Stated complaint: lost vision left eye, history of strokes Time Seen by Provider: 09/10/23 17:13 Source: patient Mode of arrival: ambulatory Limitations: no limitations History of Present Illness: 72-year-old male had a cerebellar stroke here 2 weeks ago states that today at 1230 he had sudden vision loss to his left eye. He denies any other symptoms he states that he has had no slurred speech no weakness states he is really only able to see some slight shadows out of that left eye denies any vision changes in the right eye. Associated symptoms: Denies fever(s), headache(s), nausea, neck pain or vomiting Review of Systems 2 Const: Denies: fever(s), chills, body aches or change in appetite Eyes: Reports: change in vision; Denies: eye discomfort ENMT: Denies: throat pain or dental pain Card: Denies: chest pain Resp: Denies: dyspnea GI: Denies: abdominal pain, nausea, vomiting or diarrhea Musc: Denies: neck pain or back pain Skin/Breast: Denies: rash Neuro: Denies: headache(s) PFSH ED 2 PFSH: Medical History Tobacco dependency Hypertension Seizure Remote history, last seizure 1972 Surgical History History of hernia surgery Family History Denies family history of Stroke Social History Smoking and tobacco/nicotine status: current every day tobacco/nicotine user Alcohol intake: never Physical Exam 2 Const: COMMON NORMALS: no acute distress, patient oriented x3 and healthy appearing HENMT: COMMON NORMALS: normocephalic and atraumatic HEAD & SCALP: n ormocephalic and atraumatic Eye: COMMON NORMALS: Equal, round and reactive pupils present and EOMs intact bilaterally PUPIL: Yes Equal, round and reactive pupils present OTHER: Vision loss noted to left eye he is able to see some shadows but nothing else Neck/C-Spine: COMMON NORMALS: full ROM and supple Chest: COMMONS NORMALS: normal inspection of the chest and normal palpation of entire chest wall Resp: COMMON NORMALS: normal respiratory effort, No retractions, No use of accessory muscles and clear to auscultation bilaterally AUSCULTATION: clear to auscultation bilaterally Cardio: COMMON NORMALS: regular rate, regular rhythm and No murmurs present (Cardio) RATE: regular rate RHYTHM: regular rhythm GI: COMMON NORMALS: Normal to inspection, nondistended, normoactive bowel sounds present, Soft to palpation, non-tender and no masses PALPATION: Yes Soft to palpation Extremity: COMMON NORMALS: normal to inspection and full ROM Neuro: COMMON NORMALS: patient oriented x3, moves all extremities and no focal motor deficits Psych: COMMON NORMALS: mental status grossly normal, Normal thought process present and cooperative THOUGHT PROCESS: Normal thought process present Skin: COMMON NORMALS: no rashes or lesions noted and no wounds GENERAL SKIN EXAM: no rashes or lesions noted Course 2 Vital Signs: Vital signs: Vital Signs Temperature 98.7 F 09/10/23 17:07 Pulse Rate 71 09/10/23 19:03 Respiratory Rate 16 09/10/23 17:07 Blood Pressure 163/95 09/10/23 19:03 Pulse Oximetry 98 09/10/23 19:03 Oxygen Delivery Me thod Room Air 09/10/23 17:40 MDM - Eye Problem Lab Data 09/10/23 18:00 09/10/23 18:[address] 09/10/23 17:17 IMPRESSION: Evolving infarcts in the right posterior cerebral artery territory. No acute infarction is identified. Laboratory Results WBC 4.46 10^3/uL (3.29-11.43) 09/10/23 18:00 RBC 4.48 10^6/uL (3.85-5.65) 09/10/23 18:00 Hgb 14.80 g/dL (11.27-16.99) 09/10/23 18:00 Hct 45.1 % (37-53) 09/10/23 18:00 MCV 100.7 fl (82-101) 09/10/23 18:00 MCH 33.0 pg (27-33) 09/10/23 18:00 MCHC 32.8 g/dL (30-55) 09/10/23 18:00 RDW 14.0 % (12.1-15.1) 09/10/23 18:00 Plt Count 232 10^3/cmm (157-399) 09/10/23 18:00 MPV 8.9 fL (7.4-10.4) 09/10/23 18:00 Neut % (Auto) 62.5 % 09/10/23 18:00 Lymph % (Auto) 21.1 % 09/10/23 18:00 [place] % (Auto) 13.9 % 09/10/23 18:00 Eos % (Auto) 1.6 % 09/10/23 18:00 Baso % (Auto) 0.9 % 09/10/23 18:00 Neut # (Auto) 2.79 10^3/uL (1.8-7.7) 09/10/23 18:00 Lymph # (Auto) 0.9 10^3/uL (0.8-4.8) 09/10/23 18:00 [place] # (Auto) 0.6 10^3/uL (0.2-0.9) 09/10/23 18:00 Eos # (Auto) 0.1 10^3/uL (0.0-0.8) 09/10/23 18:00 Baso # (Auto) 0.0 10^3/uL (0.0-0.1) 09/10/23 18:00 Nucleated RBC % (auto) 0 % 09/10/23 18:00 Nucleated RBCs # 0.0 /100WBC 09/10/23 18:00 Sodium 137 mmol/L (136-145) 09/10/23 18:00 Potassium 4.1 mmol/L (3.5-5.1) 09/10/23 18:00 Chloride 102 mmol/L (98-107) 09/10/23 18:00 Carbon Dioxide 26 mmol/L (22-29) 09/10/23 18:00 Anion Gap 13.1 (5-19) 09/10/23 18:00 BUN 12 mg/dL (8-23) 09/10/23 18:00 Creatinine 0.8 mg/dL (0.7-1.2) 09/10/23 18:00 GFR Calculation Not Reportable 09/10/23 18:00 Glucose 94 mg/dL (65-115) 09/10/23 18:00 Calculated Osmolality 284 mOsm/kg (285-295) L 09/10/23 18:00 Calcium 8.8 mg/dL (8.5-10.5) 09/10/23 18:00 Total Bilirubin 0.6 mg/dL (0.15-1.2) 09/10/23 18:00 AST 13 U/L (0-40) 09/10/23 18:00 ALT 8 U/L (0-41) 09/10/23 18:00 Alkaline Phosphatase 61 U/L (40-130) 09/10/23 18:00 Total Protein 6.4 g/dL (6.6-8.7) L 09/10/23 18:00 Albumin 3.7 g/dL (3.5-5.2) 09/10/23 18:00 Globulin 2.7 g/dL (1.3-4.6) 09/10/23 18:00 Discharge Plan Discharge Patient Disposition: Home Clinical Impression: Cerebellar stroke Blind left eye Qualifiers: Right eye visual impairment category: right - unspecified impairment Qualified Code(s): H54.40 - Blindness, one eye, unspecified eye Condition: Stable Prescriptions: New Plavix 75 mg tablet 75 mg PO DAILY Qty: 30 0RF No Action Ventolin HFA 90 mcg/actuation HFA aerosol inhaler 2 inh INHALATION BID PRN (Reason: Shortness Of Breath) atorvastatin 40 mg Tablet 40 mg PO BEDTIME Qty: 30 0RF clopidogrel 75 mg Tablet 75 mg PO DAILY Qty: 30 0RF aspirin 81 mg Tablet,Delayed Release (Dr/Ec) 81 mg PO DAILY Qty: 30 0RF Discharge Orders: Discharge ED (Routine); Ordered 09/10/23 Ordered By: Colt Hidalgo Referrals: Hollis Leach DO [Primary Care Provider] - 1 week Patient Instructions: Stroke (DC), Vision Problems Activity Restrictions/Additional Instructions: Please call Dr. Leach's office first thing in the morning and see why he discontinued your Plavix. It is suggested he go back on it from the neurologist you have a prescription to fill if your family doctor thinks is appropriate. You have been referred to case management for referral to ophthalmology they should be calling you probably tomorrow or definitely within the next couple business days. Coding Level of Care Code ED Documentation Specialist for Chg Fwd NIH stroke score NIHSS Level Of Consciousness - 1a: 0 Level Of Consciousness Questions - 1b: Both Correct Level Of Consciousness Commands - 1c: Both Correct Best Gaze - 2: Normal Facial Palsy - 4: Normal Motor Arm Right - 5: No Drift Motor Arm Left - 5: No Drift Motor Leg Right - 6: No Drift Motor Leg Left - 6: No Drift Limb Ataxia - 7: Absent Sensory - 8: Normal Best Language - 9: No Aphasia Dysarthia - 10: Normal Extinction And Inattention - 11: 0 Documented by User: Colt Hidalgo DO 09/11/23 05:32 HPI - Eye Problem 2 General: Chief complaint: Eye Problems Stated complaint: lost vision left eye, history of strokes Time Seen by Provider: 09/10/23 17:13 PFS ED 2 PFSH: Medical History Tobacco dependency Hypertension Seizure Remote history, last seizure 1972 Surgical History History of hernia surgery Family History Denies family history of Stroke Social History Smoking and tobacco/nicotine status: current every day tobacco/nicotine user Alcohol intake: never Course 2 Vital Signs: Vital signs: Vital Signs Temperature 98.7 F 09/10/23 17:07 Pulse Rate 71 09/10/23 19:03 Respiratory Rate 16 09/10/23 17:07 Blood Pressure 163/95 09/10/23 19:03 Pulse Oximetry 98 09/10/23 19:03 Oxygen Delivery Me thod Room Air 09/10/23 17:40 MDM - Eye Problem Medical Decision Making I took over the patient's care at shift change. The lab work came back which was essentially unremarkable. Head CT did show evolving infarct in right posterior cerebral artery territory. I did discuss this again with Dr. Keys who said we will not make any changes at this time. However talking to the patient he did state that he is not currently taking his Plavix due to his stoppage by his family doctor. I told him I could not think of any reason why he needed to stop it so I would recommend that he started back up but only after talking to his family doctor tomorrow. Discussed that we will be referring him to ophthalmology for further workup. Patient understood patient be discharged home. Lab Data 09/10/23 18:00 09/10/23 18:[address] 09/10/23 17:17 IMPRESSION: Evolving infarcts in the right posterior cerebral artery territory. No acute infarction is identified. Laboratory Results WBC 4.46 10^3/uL (3.29-11.43) 09/10/23 18:00 RBC 4.48 10^6/uL (3.85-5.65) 09/10/23 18:00 Hgb 14.80 g/dL (11.27-16.99) 09/10/23 18:00 Hct 45.1 % (37-53) 09/10/23 18:00 MCV 100.7 fl (82-101) 09/10/23 18:00 MCH 33.0 pg (27-33) 09/10/23 18:00 MCHC 32.8 g/dL (30-55) 09/10/23 18:00 RDW 14.0 % (12.1-15.1) 09/10/23 18:00 Plt Count 232 10^3/cmm (157-399) 09/10/23 18:00 MPV 8.9 fL (7.4-10.4) 09/10/23 18:00 Neut % (Auto) 62.5 % 09/10/23 18:00 Lymph % (Auto) 21.1 % 09/10/23 18:00 [place] % (Auto) 13.9 % 09/10/23 18:00 Eos % (Auto) 1.6 % 09/10/23 18:00 Baso % (Auto) 0.9 % 09/10/23 18:00 Neut # (Auto) 2.79 10^3/uL (1.8-7.7) 09/10/23 18:00 Lymph # (Auto) 0.9 10^3/uL (0.8-4.8) 09/10/23 18:00 [place] # (Auto) 0.6 10^3/uL (0.2-0.9) 09/10/23 18:00 Eos # (Auto) 0.1 10^3/uL (0.0-0.8) 09/10/23 18:00 Baso # (Auto) 0.0 10^3/uL (0.0-0.1) 09/10/23 18:00 Nucleated RBC % (auto) 0 % 09/10/23 18:00 Nucleated RBCs # 0.0 /100WBC 09/10/23 18:00 Sodium 137 mmol/L (136-145) 09/10/23 18:00 Potassium 4.1 mmol/L (3.5-5.1) 09/10/23 18:00 Chloride 102 mmol/L (98-107) 09/10/23 18:00 Carbon Dioxide 26 mmol/L (22-29) 09/10/23 18:00 Anion Gap 13.1 (5-19) 09/10/23 18:00 BUN 12 mg/dL (8-23) 09/10/23 18:00 Creatinine 0.8 mg/dL (0.7-1.2) 09/10/23 18:00 GFR Calculation Not Reportable 09/10/23 18:00 Glucose 94 mg/dL (65-115) 09/10/23 18:00 Calculated Osmolality 284 mOsm/kg (285-295) L 09/10/23 18:00 Calcium 8.8 mg/dL (8.5-10.5) 09/10/23 18:00 Total Bilirubin 0.6 mg/dL (0.15-1.2) 09/10/23 18:00 AST 13 U/L (0-40) 09/10/23 18:00 ALT 8 U/L (0-41) 09/10/23 18:00 Alkaline Phosphatase 61 U/L (40-130) 09/10/23 18:00 Total Protein 6.4 g/dL (6.6-8.7) L 09/10/23 18:00 Albumin 3.7 g/dL (3.5-5.2) 09/10/23 18:00 Globulin 2.7 g/dL (1.3-4.6) 09/10/23 18:00 XR interpretation done by ED provider, pending radiology final review Discharge Plan Discharge Patient Disposition: Home Clinical Impression: Cerebellar stroke Blind left eye Qualifiers: Right eye visual impairment category: right - unspecified impairment Qualified Code(s): H54.40 - Blindness, one eye, unspecified eye Condition: Stable Prescriptions: New Plavix 75 mg tablet 75 mg PO DAILY Qty: 30 0RF No Action Ventolin HFA 90 mcg/actuation HFA aerosol inhaler 2 inh INHALATION BID PRN (Reason: Shortness Of Breath) atorvastatin 40 mg Tablet 40 mg PO BEDTIME Qty: 30 0RF clopidogrel 75 mg Tablet 75 mg PO DAILY Qty: 30 0RF aspirin 81 mg Tablet,Delayed Release (Dr/Ec) 81 mg PO DAILY Qty: 30 0RF Discharge Orders: Discharge ED (Routine); Ordered 09/10/23 Ordered By: Colt Hidalgo Referrals: Hollis Leach DO [Primary Care Provider] - 1 week Patient Instructions: Stroke (DC), Vision Problems Activity Restrictions/Additional Instructions: Please call Dr. Leach's office first thing in the morning and see why he discontinued your Plavix. It is suggested he go back on it from the neurologist you have a prescription to fill if your family doctor thinks is appropriate. You have been referred to case management for referral to ophthalmology they should be calling you probably tomorrow or definitely within the next couple business days. Coding Level of Care Code ED Documentation Specialist for Pro Kimball
[2023-09-10 17:40] VITALS: BP 145/104; PULSE 84; O2SAT 97
[2023-09-10] MEDS: tetracaine 0.5% Op Soln 4 mL Btl 1 DROP EYE-LEFT (18:09)
[2023-09-10 18:10] VITALS: BP 103/77; PULSE 86; O2SAT 98
[2023-09-10 18:25] LABS: Basophils % 0.9 %; Eosinophils # 0.1 10^3/uL (0.0-0.8); Eosinophils % 1.6 %; Hematocrit 45.1 % (37-53); Lymphocytes # 0.9 10^3/uL (0.8-4.8); Lymphocytes % 21.1 %; Mean Corpuscular HGB Conc 32.8 g/dL (30-55); Mean Corpuscular Volume 100.7 fl (82-101); Mean Platelet Volume 8.9 fL (7.4-10.4); Monocytes # 0.6 10^3/uL (0.2-0.9); Monocytes % 13.9 %; Neutrophils # 2.79 10^3/uL (1.8-7.7); Neutrophils % 62.5 %; Nucleated Red Blood Cells % 0 %; Platelet Count 232 10^3/cmm (157-399); Red Blood Count 4.48 10^6/uL (3.85-5.65); White Blood Count 4.46 10^3/uL (3.29-11.43)
[2023-09-10 18:33] LABS: Alanine Aminotransferase 8 U/L (0-41); Albumin Level 3.7 g/dL (3.5-5.2); Alkaline Phosphatase 61 U/L (40-130); Anion Gap 13.1 (5-19); Aspartate Amino Transferase 13 U/L (0-40); Blood Urea Nitrogen 12 mg/dL (8-23); Calcium 8.8 mg/dL (8.5-10.5); Carbon Dioxide 26 mmol/L (22-29); Chloride 102 mmol/L (98-107); Globulin 2.7 g/dL (1.3-4.6); Glucose 94 mg/dL (65-115); Osmolality Calculated 284 mOsm/kg (285-295); Potassium 4.1 mmol/L (3.5-5.1); Sodium 137 mmol/L (136-145); Total Bilirubin 0.6 mg/dL (0.15-1.2); Total Protein 6.4 g/dL (6.6-8.7)
[2023-09-10 19:03] VITALS: BP 163/95; PULSE 71; O2SAT 98
--- NOTE | 2023-09-15 09:09 | DCPLANNER ---
Referral was faxed to [facility] on 09/15/23 at 0909 am. Referral was faxed to [phone]. Phone number to his clinic is [phone]. Clinic to contact patient.
== END 2023-09-10 19:04 | disposition home or self-care (01) ==
PROVIDERS: Emergency Provider Emergency Medicine; PCP Internal Medicine
DX: H54.62 Unqualified visual loss, left eye, normal vision right eye (principal); G46.4 Cerebellar stroke syndrome; Z79.02 Long term (current) use of antithrombotics/antiplatelets; Z79.82 Long term (current) use of aspirin; I10 Essential (primary) hypertension; Z72.0 Tobacco use
CPT/HCPCS: 36415; 70450; 80053; 85025; 99284

== ENCOUNTER 2023-09-17 11:14 | Emergency (ER) | payer MEDICARE, OTHER, SELFPAY ==
[2023-09-17] VITALS (28 sets, daily range): BP systolic 117–149; BP diastolic 66–94; PULSE 70–101; RESP 14; TEMP 36.6; O2SAT 93–98; BMI 30.3
--- NOTE | 2023-09-17 11:35 | CT_ITS ---
WS: [id number] CT HEAD TECHNIQUE: Noncontrast CT of the head obtained from the skullbase to the vertex. CLINICAL INFORMATION: Neuro symptoms history of stroke COMPARISON: None. DLP: 1090.[address] scans at [facility] use at least one of these dose optimization techniques: automated e xposure control; mA and/or kV adjustment per patient size (includes targeted exams where dose is matc hed to clinical indication); or iterative reconstruction. FINDINGS: No evidence of intracranial hemorrhage or mass effect. Ventricular system and basal cisterns are yepez nt. Moderate small vessel changes with moderate parenchymal volume loss. Previously described chronic infarcts involving the RIGHT posterior temporal lobe seen on the prior MRI July 2023. Associated encephalomalacia. Intracranial vascular calcification. Paranasal sinuses and mastoid air cells are well aerated. .Normal visualized soft tissues. IMPRESSION: 1. No evidence of intracranial hemorrhage or mass effect. 2. No significant changes since 09/10/2023. 3. 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 4. No acute intracranial findings.
--- NOTE | 2023-09-17 11:49 | ED_ITS ---
HPI - Neuro Symptoms/Deficit General: Chief Complaint: Neuro Symptoms/Deficit Stated Complaint: dr tapia, stroke symptons Time Seen by Provider: 09/17/23 11:28 Source: patient Mode of arrival: ambulatory History of Present Illness: 72-year-old male who [facility] had an acute CVA at that time of the time he presented he was beyond the window for treatment had cerebellar and right temporal frontal lesion. He is having increasing memory difficulty he is living with family now they are having difficulty managing him and they have noticed cognitive decline. No new recent neurologic deficits he does have loss of vision in his left eye but this has been present for since the stroke. Associated symptoms: Deny chest pain Review of Systems Const: Denies: fever(s) or chills Card: Denies: chest pain Resp: Denies: dyspnea GI: Denies: abdominal pain : Denies: dysuria, urinary frequency or urinary urgency Musc: Denies: neck pain or back pain Skin/Breast: Denies: rash PFSH ED PFSH: Medical History Tobacco dependency Hypertension Seizure Remote history, last seizure 1972 Surgical History History of hernia surgery Family History Denies family history of Stroke Social History Smoking and tobacco/nicotine status: current every day tobacco/nicotine user Alcohol intake: never Physical Exam Const: COMMON NORMALS: no acute distress GENERAL APPEARANCE: cooperative and comfortable ORIENTATION/CONSCIOUSNESS: Yes awake HENMT: COMMON NORMALS: normocephalic, atraumatic and hearing grossly normal bilaterally HEAD & SCALP: normocephalic and atraumatic Resp: COMMON NORMALS: normal respiratory effort, No retractions, No use of accessory muscles and clear to auscultation bilaterally AUSCULTATION: clear to auscultation bilaterally Cardio: COMMON NORMALS: regular rate, regular rhythm and No murmurs present (Cardio) RATE: regular rate RHYTHM: regular rhythm GI: COMMON NORMALS: Soft to palpation and No hepatosplenomegaly present AUSCULTATION: Yes normoactive bowel sounds PALPATION: Yes Soft to palpation, No Tenderness to palpation present (GI), No Guarding due to palpation present (GI) and Yes No hepatosplenomegaly present Extremity: COMMON NORMALS: normal to inspection, capillary refill normal, no clubbing, cyanosis or edema, no calf tenderness and no pedal edema Skin: COMMON NORMALS: no rashes or lesions noted GENERAL SKIN EXAM: no rashes or lesions noted Course Vital Signs: Vital signs: Vital Signs Temperature 97.9 F 09/17/23 11:18 Pulse Rate 75 09/17/23 12:50 Respiratory Rate 14 09/17/23 11:18 Blood Pressure 129/70 09/17/23 12:50 Pulse Oximetry 94 09/17/23 12:50 Oxygen Delivery Me thod Room Air 09/17/23 12:20 MDM - Neuro Symptoms/Deficit Medical Decision Making Patient had fairly extensive right temporal and cerebellar stroke he is now having difficulty with memory at times. There are certain things he could remember today but interestingly enough he did not know who Dr. Keys was who he seen when he had a stroke and in follow-up even recall that he had seen Dr. Keys in follow-up. Nothing new or acute as far as neurologic deficits go today. Feeling member with him was questionin having an MRI done. Encouraged to make a follow-up with Dr. Keys or Dr. Leach regarding an MRI as well as p ursuing rehab options to try to maximize his functional capacity. At this point no emergent condition can discharge home Medical Records I reviewed the patient's medical records. Lab Data I reviewed the patient's lab results. All radiology interpretation(s) finalized by discharge Discharge Plan Discharge Patient Disposition: Home Clinical Impression: Right temporal lobe infarction, Cerebellar stroke, Cognitive decline Condition: Stable Prescriptions: No Action albuterol sulfate [Ventolin HFA] 90 mcg/actuation HFA aerosol inhaler 2 inh INHALATION BID PRN (Reason: Shortness Of Breath) aspirin 81 mg Tablet,Delayed Release (Dr/Ec) 81 mg PO DAILY Qty: 30 0RF losartan 25 mg tablet 25 mg PO DAILY atorvastatin 40 mg tablet 40 mg PO QAM clopidogrel [Plavix] 75 mg tablet 75 mg PO DAILY Qty: 30 0RF Discharge Orders: Discharge ED (Routine); Ordered 09/17/23 Ordered By: Wei Fulton Referrals: Hollis Leach DO [Primary Care Provider] - Discharge Diet: Usual diet Discharge Activity: Resume usual activity Patient Instructions: Opioid Safety, Pain Management Activity Restrictions/Additional Instructions: Thank you for choosing [facility] for your healthcare needs today. Please realize this is an emergency room and that we are providing you with a medical screening exam and this may not be complete and all inclusive of all the testing and or work up that you may need to determine your ailment or severity of your illness. It is very important that you follow up as instructed or that you return to the Emergency Department should you have concerns or if your condition changes or worsens in any way. Memory decline is likely secondary to the recent stroke. Continue to follow with neurology and your primary care doctor. Discussed rehab for the stroke with your primary care doctor. Coding Level of Care Code ED Feather Mixer for Pro Kimball
--- NOTE | 2023-09-17 12:18 | PC.PHAR ---
PT FILLED A SCRIPT FOR HYDROCHLOROTHIAZIDE 25 MG DAILY ON 08/08/23 90DS- PT STS DR HAS DISCONTINUED THIS MED
== END 2023-09-17 13:57 | disposition home or self-care (01) ==
PROVIDERS: Emergency Provider Family Medicine; PCP Internal Medicine
DX: I63.89 Other cerebral infarction (principal); Z79.82 Long term (current) use of aspirin; Z79.02 Long term (current) use of antithrombotics/antiplatelets; Z72.0 Tobacco use; I10 Essential (primary) hypertension
CPT/HCPCS: 70450; 99284

== ENCOUNTER 2023-09-21 07:16 | Emergency (ER) | payer MEDICARE, OTHER, SELFPAY ==
[2023-09-21 07:38] VITALS: BP 153/93; PULSE 86; TEMP 36.7; O2SAT 96; BMI 32.3
--- NOTE | 2023-09-21 07:46 | ED_ITS ---
HPI - General Adult 2 General: Chief complaint: Psychiatric Symptoms Stated complaint: pt states was having hillucinations Time Seen by Provider: 09/21/23 07:39 Source: patient Mode of arrival: ambulatory Limitations: no limitations History of Present Illness: 72-year-old male that had a cerebellar s troke 2 months ago. He states he had some intermittent hallucinations since then. He states he is having hallucinations overnight states were violent in nature he states he feels much improved this morning not having any currently denies any SI or HI has no other complaints at this time. Associated symptoms: Deny chest pain, dyspnea, headache(s), nausea, rash or vomiting Review of Systems 2 Const: Denies: fever(s), chills, body aches or change in appetite Eyes: Denies: blurry vision or eye discomfort ENMT: Denies: throat pain or dental pain Card: Denies: chest pain Resp: Denies: dyspnea GI: Denies: abdominal pain, nausea, vomiting or diarrhea Musc: Denies: neck pain or back pain Skin/Breast: Denies: rash Neuro: Reports: dizziness; Denies: headache(s) Teo/Lymph: Denies: easy bruising All/Imm: Denies: urticaria PFSH ED 2 PFSH: Medical History Tobacco dependency Hypertension Seizure Remote history, last seizure 1972 Surgical History History of hernia surgery Family History Denies family history of Stroke Social History Smoking and tobacco/nicotine status: current every day tobacco/nicotine user Alcohol intake: never Physical Exam 2 Const: COMMON NORMALS: no acute distress, patient oriented x3 and healthy appearing HENMT: COMMON NORMALS: normocephalic and atraumatic HEAD & SCALP: n ormocephalic and atraumatic Eye: COMMON NORMALS: Equal, round and reactive pupils present and EOMs intact bilaterally PUPIL: Yes Equal, round and reactive pupils present Neck/C-Spine: COMMON NORMALS: full ROM and supple Chest: COMMONS NORMALS: normal inspection of the chest Resp: COMMON NORMALS: normal respiratory effort Cardio: COMMON NORMALS: regular rate, regular rhythm and No murmurs present (Cardio) RATE: regular rate RHYTHM: regular rhythm Extremity: COMMON NORMALS: normal to inspection and full ROM Neuro: COMMON NORMALS: patient oriented x3, moves all extremities and no focal motor deficits CRANIAL NERVES: Yes CN normal except as noted SPEECH: s peech normal GAIT: Yes Normal gait present Psych: COMMON NORMALS: mental status grossly normal, Normal thought process present and cooperative THOUGHT PROCESS: Normal thought process present Skin: COMMON NORMALS: no rashes or lesions noted and no wounds GENERAL SKIN EXAM: no rashes or lesions noted Course 2 Vital Signs: Vital signs: Vital Signs Temperature 98.1 F 09/21/23 07:38 Pulse Rate 86 09/21/23 07:38 Blood Pressure 153/93 09/21/23 07:38 Pulse Oximetry 96 09/21/23 07:38 Oxygen Delivery Me thod Room Air 09/21/23 07:38 MDM - General Adult Medical Decision Making Patient presents with intermittent hallucinations not having any currently I did speak to him about possible halfway for psychiatric placement he refuses both patient being take care of his [id number] who states that he does not feel he needs that either. He is not acutely psychotic we will get him follow- up with [facility] his hallucinations are likely from his stroke he is to follow-up with his neurologist as well return if worsening he understands agrees to plan Medical Records I reviewed the patient's medical records. Lab Data I reviewed the patient's lab results. 09/21/23 07:54 09/21/23 07:54 Laboratory Results WBC 3.86 10^3/uL (3.29-11.43) 09/21/23 07:54 RBC 4.71 10^6/uL (3.85-5.65) 09/21/23 07:54 Hgb 15.60 g/dL (11.27-16.99) 09/21/23 07:54 Hct 46.1 % (37-53) 09/21/23 07:54 MCV 97.9 fl (82-101) 09/21/23 07:54 MCH 33.1 pg (27-33) H 09/21/23 07:54 MCHC 33.8 g/dL (30-55) 09/21/23 07:54 RDW 13.5 % (12.1-15.1) 09/21/23 07:54 Plt Count 197 10^3/cmm (157-399) 09/21/23 07:54 MPV 9.1 fL (7.4-10.4) 09/21/23 07:54 Neut % (Auto) 54.6 % 09/21/23 07:54 Lymph % (Auto) 25.9 % 09/21/23 07:54 [place] % (Auto) 17.9 % 09/21/23 07:54 Eos % (Auto) 0.8 % 09/21/23 07:54 Baso % (Auto) 0.5 % 09/21/23 07:54 Neut # (Auto) 2.11 10^3/uL (1.8-7.7) 09/21/23 07:54 Lymph # (Auto) 1.0 10^3/uL (0.8-4.8) 09/21/23 07:54 [place] # (Auto) 0.7 10^3/uL (0.2-0.9) 09/21/23 07:54 Eos # (Auto) 0.0 10^3/uL (0.0-0.8) 09/21/23 07:54 Baso # (Auto) 0.0 10^3/uL (0.0-0.1) 09/21/23 07:54 Nucleated RBC % (auto) 0 % 09/21/23 07:54 Nucleated RBCs # 0.0 /100WBC 09/21/23 07:54 Sodium 138 mmol/L (136-145) 09/21/23 07:54 Potassium 3.4 mmol/L (3.5-5.1) L 09/21/23 07:54 Chloride 102 mmol/L (98-107) 09/21/23 07:54 Carbon Dioxide 26 mmol/L (22-29) 09/21/23 07:54 Anion Gap 13.4 (5-19) 09/21/23 07:54 BUN 14 mg/dL (8-23) 09/21/23 07:54 Creatinine 0.8 mg/dL (0.7-1.2) 09/21/23 07:54 GFR Calculation Not Reportable 09/21/23 07:54 Glucose 95 mg/dL (65-115) 09/21/23 07:54 Calculated Osmolality 286 mOsm/kg (285-295) 09/21/23 07:54 Calcium 8.4 mg/dL (8.5-10.5) L 09/21/23 07:54 Total Bilirubin 0.6 mg/dL (0.15-1.2) 09/21/23 07:54 AST 23 U/L (0-40) 09/21/23 07:54 ALT 16 U/L (0-41) 09/21/23 07:54 Alkaline Phosphatase 57 U/L (40-130) 09/21/23 07:54 Total Protein 6.2 g/dL (6.6-8.7) L 09/21/23 07:54 Albumin 3.6 g/dL (3.5-5.2) 09/21/23 07:54 Globulin 2.6 g/dL (1.3-4.6) 09/21/23 07:54 Urine Color Yellow (Yellow) 09/21/23 08:21 Urine Appearance Clear (CLEAR) 09/21/23 08:21 Urine pH 6 (5-7) 09/21/23 08:21 Ur Specific [place] 1.015 (1.005-1.030) 09/21/23 08:21 Urine Protein Neg (Negative) 09/21/23 08:21 Urine Glucose (UA) Norm (Normal) 09/21/23 08:21 Urine Ketones Negative (Negative) 09/21/23 08:21 Urine Blood Trace (Negative) H 09/21/23 08:21 Urine Nitrate Negative (Negative) 09/21/23 08:21 Urine Bilirubin Neg (Negative) 09/21/23 08:21 Urine Urobilinogen Norm mg/dL (Negative) 09/21/23 08:21 Ur Leukocyte Esterase Negative (Negative) 09/21/23 08:21 No radiology studies performed this visit Discharge Plan Discharge Patient Disposition: Home Clinical Impression: Hallucination, Cerebellar stroke Condition: Stable Prescriptions: No Action albuterol sulfate [Ventolin HFA] 90 mcg/actuation HFA aerosol inhaler 2 inh INHALATION BID PRN (Reason: Shortness Of Breath) losartan 25 mg tablet 25 mg PO QAM atorvastatin 40 mg tablet 40 mg PO QAM Plavix 75 mg tablet 75 mg PO QAM aspirin 81 mg tablet,delayed release (DR/EC) 81 mg PO QAM Discharge Orders: Discharge ED (Routine); Ordered 09/21/23 Ordered By: Quincy Delarosa Referrals: Hollis Leach DO [Primary Care Provider] - 1-3 days Discharge Diet: Advance as tolerated Discharge Activity: Resume usual activity Patient Instructions: Hallucinations (ED) Coding Level of Care Code 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
[2023-09-21 07:59] LABS: Basophils % 0.5 %; Eosinophils % 0.8 %; Hematocrit 46.1 % (37-53); Lymphocytes % 25.9 %; Mean Corpuscular HGB Conc 33.8 g/dL (30-55); Mean Corpuscular Hemoglobin 33.1 pg (27-33); Mean Corpuscular Volume 97.9 fl (82-101); Mean Platelet Volume 9.1 fL (7.4-10.4); Monocytes # 0.7 10^3/uL (0.2-0.9); Monocytes % 17.9 %; Neutrophils # 2.11 10^3/uL (1.8-7.7); Neutrophils % 54.6 %; Nucleated Red Blood Cells % 0 %; Platelet Count 197 10^3/cmm (157-399); Red Blood Count 4.71 10^6/uL (3.85-5.65); Red Cell Distribution Width 13.5 % (12.1-15.1); White Blood Count 3.86 10^3/uL (3.29-11.43)
--- NOTE | 2023-09-21 08:09 | PC.PHAR ---
pt and pts family verified pts medications-states the pts hctz 25mg daily filled 08/08/23 90d/s was dced
[2023-09-21 08:24] LABS: Alanine Aminotransferase 16 U/L (0-41); Albumin Level 3.6 g/dL (3.5-5.2); Alkaline Phosphatase 57 U/L (40-130); Anion Gap 13.4 (5-19); Aspartate Amino Transferase 23 U/L (0-40); Blood Urea Nitrogen 14 mg/dL (8-23); Calcium 8.4 mg/dL (8.5-10.5); Carbon Dioxide 26 mmol/L (22-29); Chloride 102 mmol/L (98-107); Globulin 2.6 g/dL (1.3-4.6); Glucose 95 mg/dL (65-115); Osmolality Calculated 286 mOsm/kg (285-295); Potassium 3.4 mmol/L (3.5-5.1); Sodium 138 mmol/L (136-145); Total Bilirubin 0.6 mg/dL (0.15-1.2); Total Protein 6.2 g/dL (6.6-8.7)
[2023-09-21 08:31] LABS: Specific Gravity, Urine 1.015 (1.005-1.030); Urine Appearance Clear (CLEAR); Urine Color Yellow (Yellow); pH Urine 6 (5-7)
[2023-09-21 08:32] LABS: Bilirubin Urine Neg (Negative); Blood Urine Trace (Negative); Glucose Urine UA Norm (Normal); Ketones Urine Negative (Negative); Leukocyte Esterase Urine Negative (Negative); Nitrate Urine Negative (Negative); Protein Urine Neg (Negative); Urobilinogen Urine Norm (Negative)
[2023-09-21 09:08] LABS: Add Urine Culture? No; Add Urine Microscopic? YES; Bacteria Urine TRACE /hpf; Mucus Urine TRACE /hpf; RBC Urine RARE /hpf (0-2); WBC Urine 0-4 /hpf (0-5)
--- NOTE | 2023-09-22 11:25 | DCPLANNER ---
Message was sent to [facility] on 09/21/23 at 1128. [facility] to contact patient.
== END 2023-09-21 08:47 | disposition home or self-care (01) ==
PROVIDERS: Emergency Provider Emergency Medicine; PCP Internal Medicine
DX: R44.3 Hallucinations, unspecified (principal); I63.9 Cerebral infarction, unspecified; Z79.02 Long term (current) use of antithrombotics/antiplatelets; Z79.82 Long term (current) use of aspirin; I10 Essential (primary) hypertension; Z72.0 Tobacco use
CPT/HCPCS: 36415; 80053; 81001; 85025; 99283

== ENCOUNTER 2023-10-16 08:21 | Outpatient (CLI) | payer MEDICARE, OTHER, SELFPAY ==
--- NOTE | 2023-10-16 08:26 | MR_ITS ---
WS: [id number] MRI ORBIT, FACE AND NECK WITH AND WITHOUT CONTRAST. COMPARISON: MRI brain 07/28/2023 Multiplanar, multisequence imaging is performed with and without contrast. Visualized brain demonstrates mild atrophy and small vessel ischemic disease. Remote infarct with vol ume loss involving the medial posterior RIGHT temporal lobe. No acute infarct. No areas of abnormal e nhancement involving the orbits, face or brain. No mass or mass effect. No abnormality at the cerebel lopontine angle. No intracranial hemorrhage. Orbits and globes are normal. No optic neuritis. Symmetr ic appearance of the extraocular muscles. Otherwise mild global volume loss and mild small vessel ischemic disease. Normal ventricles and extra-axial spaces. No sinus disease. Mastoid air cells are clear. Normal calvarium. IMPRESSION: 1. Remote RIGHT medial temporal lobe infarct with involvement of the hippocampal gyrus. 2. No acute infarcts or diffusion abnormalities. 3. Mild global atrophy and small vessel ischemic disease. 4. Normal appearance of the orbits and globes. No evidence for optic neuritis. 5. No mass or abnormal signal along the optic radiations.
[2023-10-16] MEDS: gadobenate dimeglumine 20 mL vial IV (11:04)
== END 2023-10-16 08:22 | disposition home or self-care (01) ==
LOC: RAD 08:21
PROVIDERS: PCP Internal Medicine; Visit Provider Internal Medicine
DX: H54.62 Unqualified visual loss, left eye, normal vision right eye (principal); G31.9 Degenerative disease of nervous system, unspecified; I67.82 Cerebral ischemia
CPT/HCPCS: 70543; A9577

== ENCOUNTER 2023-12-22 13:29 | Outpatient (CLI) | payer MEDICARE, OTHER, SELFPAY ==
--- NOTE | 2023-12-22 13:45 | USCV_ITS ---
DerrickAdan Age: 73 Gender: M : 1950 Exam Date: 12/22/2023 13:54 Ordering Phys: Gatito Conti M.D ([email or web address]) Technologist: KHANG Exam Location: [facility] [place] Indication: Mitral stenosis BP: 148 / 79 HR: 101 Rhythm: Sinus Technical Quality: Good MEASUREMENTS (Male / Female) Normal Values 2D ECHO LV Diastolic Diameter PLAX 4.3 cm 4.2 - 5.9 / 3.9 - 5.3 cm IVS Diastolic Thickness 1.3 cm 0.6 - 1.0 / 0.6 - 0.9 cm IVS Systolic Thickness 1.7 cm LVPW Diastolic Thickness 1.7 cm 0.6 - 1.0 / 0.6 - 0.9 cm LVPW Systolic Thickness 2.8 cm LVOT Diameter 2.2 cm LV Ejection Fraction 2D Teich 74.9 % LV Ejection Fraction MOD 2C 73.3 % LV Ejection Fraction 2C AL 74.1 % LA Diameter 4.5 cm RA Systolic Volume 4C AL 16.4 ml RA Systolic Volume 4C MOD 15.7 ml Aorta at Sinotubular Diameter 3.5 cm IVC Diameter 1.7 cm M-MODE LA Ao Ratio MM 1.1 AV Cusp Separation MM 2.2 cm DOPPLER AV Peak Velocity 164.0 cm/s AV Area Cont Eq vti 3.2 cm squared AV Area Cont Eq pk 3.4 cm squared MV Peak Velocity 175.0 cm/s MV Area PHT 1.6 cm squared Mitral E to A Ratio 1.3 TV Peak Velocity 138.2 cm/s TR Peak Velocity 225.0 cm/s TR Peak Gradient 20.3 mmHg TR Mean Velocity 168.0 cm/s TR Mean Gradient 13.5 mmHg TR Velocity Time Integral 62.2 cm Right Atrial Pressure 3.0 mmHg Pulmonary Artery Systolic Pressu 23.3 mmHg PV Peak Velocity 83.0 cm/s FINDINGS Left Ventricle Left ventricle is normal in size. LV systolic function is normal with EF of 60-65%. No regional wall motion abnormalities are seen. Grade 2 diastolic dysfunction Right Ventricle Normal in size Right Atrium Normal in size Left Atrium Dilated Mitral Valve Severe mitral annular calcification. Trace mitral regurgitation. Mean gradient across mitral valve is 5.3 mmHg. Moderate mitral stenosis. By pressure half time mitral valve area is 1.6cm2. Aortic Valve Structurally normal aortic valve. No significant stenosis or regurgitation. Tricuspid Valve Mild tricuspid regurgitation. Pulmonary artery systolic pressure is normal. Pulmonic Valve Not well visualized Pericardium Trace pericardial effusion Aorta Ascending aorta is mildly dilated with diameter of 3.8 cm. IVC Appears to be normal CONCLUSIONS LV systolic function is normal with EF of 60 to 65%. Grade 2 diastolic dysfunction Left atrial dilation Mild to moderate mitral stenosis. Trace mitral regurgitation Mild tricuspid regurgitation Ascending aorta is mildly dilated with diameter of 3.8 cm Compared to prior echocardiogram from 2022, mean gradient across mitral valve is lower on current study. Gatito Conti MD (Electronically Signed) Final Date: 04 January 2024 11:35 S
== END 2023-12-22 13:30 | disposition home or self-care (01) ==
LOC: RAD 13:29
PROVIDERS: PCP Internal Medicine; Visit Provider Internal Medicine
DX: I08.1 Rheumatic disorders of both mitral and tricuspid valves (principal); I77.810 Thoracic aortic ectasia
CPT/HCPCS: 93306

== ENCOUNTER 2024-01-09 06:00 | Outpatient (RCR) | payer MEDICARE, OTHER, SELFPAY | END 2024-02-03 23:59 | disposition home or self-care (01) | LOC: SST 06:00 | PROVIDERS: Visit Provider Internal Medicine | DX: Z86.73 Personal history of transient ischemic attack (TIA), and cerebral infarction without residual deficits (principal) | CPT/HCPCS: 92507; 92523 ==

== ENCOUNTER → 2024-01-20 15:03 | Outpatient (BNVA) | payer MEDICARE, OTHER, SELFPAY | PROVIDERS: Visit Provider Psychiatry & Neurology Neurology | DX: Z86.73 Personal history of transient ischemic attack (TIA), and cerebral infarction without residual deficits (principal); I67.2 Cerebral atherosclerosis; I10 Essential (primary) hypertension; F17.200 Nicotine dependence, unspecified, uncomplicated | CPT/HCPCS: 99212 ==

== ENCOUNTER 2024-02-04 06:00 | Outpatient (RCR) | payer MEDICARE, OTHER, SELFPAY | END 2024-03-05 23:59 | disposition home or self-care (01) | LOC: SST 06:00 | PROVIDERS: PCP Internal Medicine; Visit Provider Internal Medicine | DX: Z86.73 Personal history of transient ischemic attack (TIA), and cerebral infarction without residual deficits (principal) | CPT/HCPCS: 92507 ==

== ENCOUNTER → 2024-02-09 15:50 | Outpatient (BNVA) | payer MEDICARE, OTHER, SELFPAY | PROVIDERS: PCP Internal Medicine; Visit Provider Internal Medicine | DX: I05.0 Rheumatic mitral stenosis (principal); F17.200 Nicotine dependence, unspecified, uncomplicated; Z86.73 Personal history of transient ischemic attack (TIA), and cerebral infarction without residual deficits | CPT/HCPCS: 99214 ==

== ENCOUNTER 2024-03-06 06:00 | Outpatient (RCR) | payer MEDICARE, OTHER, SELFPAY | END 2024-04-04 23:59 | disposition home or self-care (01) | LOC: SST 06:00 | PROVIDERS: PCP Internal Medicine; Visit Provider Internal Medicine | DX: Z86.73 Personal history of transient ischemic attack (TIA), and cerebral infarction without residual deficits (principal) | CPT/HCPCS: 92507 ==

== ENCOUNTER 2024-04-05 06:00 | Outpatient (RCR) | payer MEDICARE, OTHER, SELFPAY | END 2024-05-05 23:59 | disposition home or self-care (01) | LOC: SST 06:00 | PROVIDERS: PCP Internal Medicine; Visit Provider Internal Medicine | DX: I63.9 Cerebral infarction, unspecified (principal) | CPT/HCPCS: 92507 ==

== ENCOUNTER 2024-04-28 15:00 | Outpatient (CLI) | payer MEDICARE, OTHER, SELFPAY ==
--- NOTE | 2024-04-28 15:04 | CT_ITS ---
WS: [id number] CT NECK WITH CONTRAST HISTORY: CHRONIC LARYNGITIS TECHNIQUE: Contiguous 2 mm axial images are performed through the neck with intravenous contrast. Sag ittal and coronal reformats are also submitted. All CT scans at [facility] use at least one o f these dose optimization techniques: automated exposure control; mA and/or kV adjustment per patient size (includes targeted exams where dose is matched to clinical indication); or iterative reconstruc tion. CONTRAST: CONTRAST: Omnipaque 350; 100 mL IV. DLP: 154.93 mGy.cm COMPARISON: None available. Increased soft tissue without significant enhancement involving the LEFT [place] tonsil and possibly the tongue base. The area of increased soft tissue measures 2.0 x 1.2 cm and needs to be evaluated f or possible neoplasm. Very minimal enhancement of the soft tissue. Enhancement is similar to the delmi ining mucosal enhancement. Normal larynx and subglottic airway. No cervical chain lymph nodes identif ied. Parapharyngeal fat and salivary glands are negative. There is a small layering RIGHT pleural effusion noted at the RIGHT apex. There are also lymph nodes in the mediastinum which need to be further evaluated. Inseparable from the LEFT subclavian vein is a soft tissue mass which is probably a lymph node measuring 1.6 x 2.5 cm. There is additional soft tis rodger in the RIGHT paratracheal location. Only a small portion of the mediastinum has been included. At herosclerotic calcifications within the visualized aortic arch. On the localizer image the heart is e nlarged. Cervical spondylosis. CT/CT neck w con* [id number] IMPRESSION: 1. Focal area of increased fullness and soft tissue centered in the LEFT [place] tonsil measuring 2.0 x 1.2 cm. Recommend direct visualization. Neoplasm nee ds to be excluded. 2. No cervical chain adenopathy identified. 3. Small layering RIGHT pleural effusion is noted at the RIGHT apex. There are also additional mediastinal lymph nodes which need to be further evaluated. Re commend follow-up chest CT with IV contrast. 4. Cardiomegaly.
[2024-04-28 16:01] LABS: Blood Urea Nitrogen 11 mg/dL (8-23)
[2024-04-28] MEDS: iohexol 350 mg/mL 500 mL Btl (per mL) IV (16:18)
== END 2024-04-28 15:03 | disposition home or self-care (01) ==
LOC: RAD 15:02
PROVIDERS: PCP Internal Medicine; Visit Provider Otolaryngology
DX: J37.0 Chronic laryngitis (principal); R93.89 Abnormal findings on diagnostic imaging of other specified body structures; J90 Pleural effusion, not elsewhere classified; I51.7 Cardiomegaly
CPT/HCPCS: 70491; 82565; 84520; Q9967

== ENCOUNTER 2024-05-05 13:17 | Outpatient (CLI) | payer MEDICARE, OTHER, SELFPAY ==
--- NOTE | 2024-05-05 13:25 | CT_ITS ---
WS: [id number] CT CHEST TECHNIQUE: Contrast enhanced CT of the chest with coronal and sagittal reformatted images. CLINICAL INFORMATION: LOCALIZED ENLARGED LYMPH NODES COMPARISON: None. DLP: 360.[address] scans at [facility] use at least one of these dose optimization techniques: automated e xposure control; mA and/or kV adjustment per patient size (includes targeted exams where dose is matc hed to clinical indication); or iterative reconstruction. FINDINGS: Cardiomegaly. Moderate pericardial effusion. Coronary calcification. Normal caliber thoracic aorta. A ortic calcification. Masslike precarinal soft tissue opacity or confluent lymphadenopathy measuring approximately 3.6 x 5. 8 cm. Some associated calcified lymph nodes. Calcified subcarinal lymph nodes. Confluent appearing in crease soft tissue density or fibrosis in the paratracheal soft tissues. Recommend further evaluation with bronchoscopy. This can also be further evaluated with PET/CT. Semisolid soft tissue opacity RIGHT middle lobe along the fissure measuring 1.5 x 2.2 cm. LEFT lung i s well aerated. LEFT AP window lymphadenopathy measuring 1.8 cm. Moderate RIGHT pleural effusion with compressive atelectasis RIGHT lower lobe. CT/CT chest w con* [id number] IMPRESSION: 1. Masslike precarinal soft tissue lesion measuring 3.6 x 5.8 cm with mild trudy rowing of the RIGHT main pulmonary artery. Findings suspicious for neoplasm. Ad ditional considerations include lymphoma and possibly fibrosing mediastinitis. Recommend further evaluation with bronchoscopy and PET/CT. 2. RIGHT middle lobe opacity measures 1.5 x 2.2 cm is indeterminant. 3. Enlarged LEFT AP window lymph node measuring 1.8 cm. 4. Moderate pericardial effusion. 5. Small to moderate RIGHT pleural effusion with RIGHT basilar atelectasis.
[2024-05-05] MEDS: iohexol 350 mg/mL 500 mL Btl (per mL) IV (14:22)
== END 2024-05-05 13:18 | disposition home or self-care (01) ==
PROVIDERS: PCP Internal Medicine; Visit Provider Otolaryngology
DX: R59.0 Localized enlarged lymph nodes (principal); I51.7 Cardiomegaly; I28.8 Other diseases of pulmonary vessels; I31.39 Other pericardial effusion (noninflammatory); J90 Pleural effusion, not elsewhere classified; J98.11 Atelectasis; I70.0 Atherosclerosis of aorta; I25.10 Atherosclerotic heart disease of native coronary artery without angina pectoris
CPT/HCPCS: 71260; Q9967

== ENCOUNTER 2024-05-06 06:00 | Outpatient (RCR) | payer MEDICARE, OTHER, SELFPAY | END 2024-06-05 23:59 | disposition home or self-care (01) | LOC: SST 06:00 | PROVIDERS: PCP Internal Medicine; Visit Provider Internal Medicine | DX: I63.9 Cerebral infarction, unspecified (principal) | CPT/HCPCS: 92507 ==

== ENCOUNTER 2024-06-06 06:00 | Outpatient (RCR) | payer MEDICARE, OTHER, SELFPAY | END 2024-07-05 23:59 | disposition home or self-care (01) | LOC: SST 06:00 | PROVIDERS: PCP Internal Medicine; Visit Provider Internal Medicine | DX: I63.9 Cerebral infarction, unspecified (principal) | CPT/HCPCS: 92507 ==

== ENCOUNTER 2024-06-18 10:38 | Outpatient (CLI) | payer MEDICARE, OTHER, SELFPAY ==
--- NOTE | 2024-06-18 10:43 | MR_ITS ---
WS: [id number] MRI NECK WITH AND WITHOUT CONTRAST CONTRAST. COMPARISON: 10/16/2023, neck CT 04/28/2024 Multiplanar, multisequence imaging is performed with and without contrast. MultiHance 16 mL. Previously described prominence and fullness centered in the LEFT [place] tonsil is not identified o n MRI. There is no signal abnormality present. The oropharynx and nasopharynx and parapharyngeal fat is normal. No asymmetry of fullness in the [place] tonsils. Epiglottis and larynx are symmetric and midline. Subglottic region is normal. No thickening or nodularity of the vocal cords. No cervical chain adenopathy. There is some motion artifact on the sequences and swallowing artifact causing some mild limitation. No signal abnormality in the cervical cord. Degenerative changes in the cervical spine. On the postco ntrast imaging no focal areas of abnormal enhancement. MR/MR orbit face neck wo/w* [id number] IMPRESSION: 1. Negative MRI neck for adenopathy. 2. Previously described fullness in the LEFT [place] tonsil is no longer pres ent. This may been related to secretions. 3. No nodularity or thickening of the vocal cords.
[2024-06-18] MEDS: gadobenate dimeglumine 20 mL vial 16 ML IV (11:43)
== END 2024-06-18 10:39 | disposition home or self-care (01) ==
LOC: RAD 10:38
PROVIDERS: PCP Internal Medicine; Visit Provider Specialist
DX: J37.0 Chronic laryngitis (principal); M50.30 Other cervical disc degeneration, unspecified cervical region
CPT/HCPCS: 70543; A9577

== ENCOUNTER 2024-07-06 06:00 | Outpatient (RCR) | payer MEDICARE, OTHER, SELFPAY | END 2024-08-05 23:59 | disposition home or self-care (01) | LOC: SST 06:00 | PROVIDERS: PCP Internal Medicine; Visit Provider Internal Medicine | DX: I63.9 Cerebral infarction, unspecified (principal) | CPT/HCPCS: 92507 ==

== ENCOUNTER → 2024-08-16 10:45 | Outpatient (BNVA) | payer MEDICARE, OTHER, SELFPAY | PROVIDERS: PCP Internal Medicine; Visit Provider Nurse Practitioner Family | DX: I34.2 Nonrheumatic mitral (valve) stenosis (principal); I10 Essential (primary) hypertension; F17.210 Nicotine dependence, cigarettes, uncomplicated | CPT/HCPCS: 99214 ==

== ENCOUNTER 2024-09-05 06:30 | Outpatient (RCR) | payer MEDICARE, OTHER, SELFPAY | END 2024-10-05 23:59 | disposition home or self-care (01) | LOC: SST 06:30 | PROVIDERS: PCP Internal Medicine; Visit Provider Internal Medicine | DX: I63.9 Cerebral infarction, unspecified (principal) | CPT/HCPCS: 92507 ==

== ENCOUNTER 2024-09-10 07:59 | Outpatient (CLI) | payer MEDICARE, OTHER, SELFPAY ==
--- NOTE | 2024-09-10 08:30 | USCV_ITS ---
Adan Meza Age: 73 Gender: M : 1950 Exam Date: 09/10/2024 08:50 Ordering Phys: Mely Byrnes Technologist: Lucio Carbone [place] [facility] [place]: mitral stenosis BP: 168 / 71 HR: 64 Rhythm: Sinus Technical Quality: Adequate MEASUREMENTS (Male / Female) Normal Values 2D ECHO LV Systolic Diameter PLAX 4.5 cm IVS Systolic Thickness 1.7 cm LVPW Systolic Thickness 2.0 cm LVOT Diameter 2.0 cm LV Ejection Fraction MOD 4C 62.4 % LV Ejection Fraction MOD 2C 61.9 % LV Ejection Fraction 2C AL 63.3 % LA Diameter 4.5 cm RA Systolic Volume 4C AL 58.2 ml RA Systolic Volume 4C MOD 60.4 ml LA Sys Volume AL 78.3 cm cubed LA Sys Volume Index AL 37.5 cm cubed/m squared Aorta at Sinotubular Diameter 2.3 cm IVC Diameter 1.7 cm M-MODE LA Ao Ratio MM 1.3 AV Cusp Separation MM 1.9 cm DOPPLER AV Peak Velocity 151.0 cm/s LVOT Peak Velocity 104.0 cm/s AV Area Cont Eq vti 2.3 cm squared AV Area Cont Eq pk 2.2 cm squared MV Peak Velocity 150.0 cm/s MV Area PHT 1.4 cm squared Mitral E to A Ratio 1.0 TV Peak Velocity 258.3 cm/s TR Peak Velocity 320.0 cm/s TR Peak Gradient 41.0 mmHg TR Mean Velocity 249.0 cm/s TR Mean Gradient 27.3 mmHg TR Velocity Time Integral 81.5 cm PV Peak Velocity 82.7 cm/s RV Ejection Time 0.3 s FINDINGS Left Ventricle Left ventricle is normal in size. LV systolic function is normal with EF of 50-55%. No regional wall motion abnormalities are seen. Right Ventricle Normal in size and function Right Atrium Normal in size Left Atrium Dilated Mitral Valve Severe mitral annular calcification. Mild mitral regurgitation. Mild mitral stenosis with mean gradient across mitral valve of 4 mm. Aortic Valve Structurally normal aortic valve. No significant stenosis Tricuspid Valve Mild tricuspid regurgitation. Insufficient TR jet to calculate RVSP Pulmonic Valve Mild to moderate pulmonic regurgitation. Pericardium Small pericardial effusion. Aorta Normal in size IVC Appears to be normal CONCLUSIONS LV systolic function is normal with EF 50 to 55%. Left atrial dilation Mild mitral regurgitation. Mild mitral stenosis with mean gradient across mitral valve of 4 mm. Mild tricuspid regurgitation Mild to moderate pulmonic regurgitation. Small pericardial effusion. Compared to prior echocardiogram from 12/2023, LV systolic function appears to be slightly lower but still normal Gatito Conti MD (Electronically Signed) Final Date: 10 September 2024 14:51 S
== END 2024-09-10 08:00 | disposition home or self-care (01) ==
LOC: RAD 08:00
PROVIDERS: PCP Internal Medicine; Visit Provider Nurse Practitioner Family
DX: I37.1 Nonrheumatic pulmonary valve insufficiency (principal); I34.81 Nonrheumatic mitral (valve) annulus calcification
CPT/HCPCS: 93306

== ENCOUNTER 2024-10-06 06:00 | Outpatient (RCR) | payer MEDICARE, OTHER, SELFPAY | END 2024-11-05 23:59 | disposition home or self-care (01) | LOC: SST 06:00 | PROVIDERS: PCP Internal Medicine; Visit Provider Internal Medicine | DX: I63.9 Cerebral infarction, unspecified (principal); R47.01 Aphasia | CPT/HCPCS: 92507 ==

== ENCOUNTER 2024-11-24 12:49 | Outpatient (RCR) | payer MEDICARE, OTHER, SELFPAY | END 2024-12-03 23:59 | disposition home or self-care (01) | LOC: SST 12:49 | PROVIDERS: PCP Internal Medicine; Visit Provider Internal Medicine | DX: I63.9 Cerebral infarction, unspecified (principal); R47.01 Aphasia | CPT/HCPCS: 92507 ==

== ENCOUNTER 2025-01-20 10:53 | Emergency (ER) | payer MEDICARE, OTHER, SELFPAY ==
[2025-01-20 11:02] VITALS: BP 95/61; PULSE 66; RESP 16; O2SAT 98; BMI 24.2
--- NOTE | 2025-01-20 13:33 | W.ED.NAVMDI ---
HPI - Nausea/Vomiting/Diarrhea General: Chief complaint: Nausea/Vomiting/Diarrhea Stated complaint: uncontrolled bowels Time Seen by Provider: 01/20/25 13:32 History of Present Illness: 74-year-old male presents to the emergency room with complaints of difficulty with his bowels. States for last 2 weeks he has had intermittent constipation and diarrhea he denies any hematochezia melena hematemesis coffee-ground emesis no vomiting. He thinks it stems from when he ate some popcorn.. His identical history of lung cancer currently is getting immunotherapy as far as he is aware there is no metastasis. He has previously had a colonoscopy had a polyp removed but never had any cancers diagnosed. Associated nausea: Yes Associated symtoms: Reports nausea; Denies chest pain or dysuria Related Data Home Medications ?Medication ?Instructions ?Recorded ?Confirmed atorvastatin 40 mg tablet 40 mg PO QAM 09/17/23 01/20/25 aspirin 81 mg tablet,delayed 81 mg PO QAM 09/21/23 01/20/25 release clopidogrel 75 mg tablet (Plavix) 75 mg PO QAM 09/21/23 01/20/25 budesonide-formoterol HFA 160 2 puff inhalation BID 01/20/25 01/20/25 mcg-4.5 mcg/actuation aerosol inhaler losartan 100 mg tablet 100 mg PO DAILY 01/20/25 01/20/25 metoprolol tartrate 50 mg tablet 50 mg PO BID 01/20/25 01/20/25 olanzapine 2.5 mg tablet 2.5 mg PO QPM 01/20/25 01/20/25 omeprazole 20 mg capsule,delayed 20 mg PO DAILY 01/20/25 01/20/25 release Previous Rx's ?Medication ?Instructions ?Recorded lactulose 10 gram/15 mL oral 30 ml PO Q2H 72 hours #1,080 mL 01/20/25 solution (Generlac) Allergies Allergy/AdvReac Type Severity Reaction Status Date / Time No Known Allergies Allergy Verified 08/16/24 11:16 Review of Systems Const: Denies: fever(s) or chills Card: Denies: chest pain Resp: Denies: dyspnea GI: Reports: abdominal pain, nausea, diarrhea and constipation; Denies: vomiting, hematemesis, coffee ground emesis, hematochezia, melena or mucus in stool : Denies: dysuria, urinary frequency or urinary urgency Musc: Denies: neck pain or back pain Skin/Breast: Denies: rash PFSH ED PFSH: Medical History Tobacco dependency Hypertension Seizure Remote history, last seizure 1972 Surgical History History of hernia surgery Family History Denies family history of Stroke Social History Smoking and tobacco/nicotine status: current every day tobacco/nicotine user (2 cigarettes a day) Alcohol intake: never Physical Exam Const: GENERAL APPEARANCE: cooperative ORIENTATION/CONSCIOUSNESS: Yes awake, Yes oriented to person, Yes oriented to place and Yes oriented to time HENMT: COMMON NORMALS: normocephalic, atraumatic and hearing grossly normal bilaterally HEAD & SCALP: normocephalic and atraumatic Resp: COMMON NORMALS: normal respiratory effort, No retractions, No use of accessory muscles and clear to auscultation bilaterally AUSCULTATION: clear to auscultation bilaterally Cardio: COMMON NORMALS: regular rate, regular rhythm and No murmurs present (Cardio) RATE: regular rate RHYTHM: regular rhythm GI: COMMON NORMALS: No hepatosplenomegaly present INSPECTION: No abdominal distension AUSCULTATION: Yes normoactive bowel sounds PALPATION: Yes Tenderness to palpation present (GI) (Mild diffuse), No Guarding due to palpation present (GI) and Yes No hepatosplenomegaly present Extremity: COMMON NORMALS: normal to inspection, capillary refill normal, no clubbing, cyanosis or edema, no calf tenderness and no pedal edema Neuro: SENSORIUM/ORIENTATION: Yes oriented to person, Yes oriented to place and Yes oriented to time Skin: COMMON NORMALS: no rashes or lesions noted GENERAL SKIN EXAM: no rashes or lesions noted Course Vital Signs: Vital signs: Vital Signs Pulse Rate 82 01/20/25 16:54 Respiratory Rate 16 01/20/25 11:02 Blood Pressure 146/81 01/20/25 16:54 Pulse Oximetry 94 01/20/25 16:54 Oxygen Delivery Me thod Room Air 01/20/25 15:23 MDM - Nausea/Vomiting/Diarrhea Medical Decision Making Patient does have moderate amount of retained stool he is very concerned he is constipated. Will give him some lactulose to try to relieve this he says he has to strain quite a bit and he will only get out small amounts when he takes laxatives he gets out some liquid but does not pass much for solid stool. There is still some solid stool on the scan. Will give him lactulose to try to use as needed to relieve this. There is some thickening in the bladder which I suspect is from his prior prostate issues chronic overdistention it is decompressed now he is not having any urinary retention there is no sign of bladder infection. Follow-up with his primary care doctor. Medical Records I reviewed the patient's medical records. Lab Data I reviewed the patient's lab results. 01/20/25 13:33 01/20/25 13:33 Radiology Impressions Abdomen/Pelvis CT 01/20/25 13:51 IMPRESSION: 1. Mild diffuse urinary bladder wall thickening which can be seen with cystitis or chronic outlet obstruction given presence of moderate prostatic enlargement. 2. Otherwise, no acute findings in the abdomen or pelvis. 3. Indeterminate hypoenhancing lesion in the right kidney measuring 8 mm. 4. Findings consistent with sequela of old granulomatous disease including calcified granulomas in the liver and spleen. 5. Moderately sized chronic pericardial effusion measuring up to 1.8 cm in thickness posteriorly. COMMENTS: Consistent with the [employer]'s Incidental Findings Committee white paper (J Am Willa Radiol 2018): Any incidental renal lesion less than 1 cm or classified as too small to characterize, or any incidental cystic renal lesion characterized as simple-appearing, is likely benign. No follow-up imaging is recommended for these lesions per consensus recommendations based on imaging criteria. Laboratory Results WBC 4.96 10^3/uL (3.29-11.43) 01/20/25 13:33 RBC 4.27 10^6/uL (3.85-5.65) 01/20/25 13:33 Hgb 14.20 g/dL (11.27-16.99) 01/20/25 13:33 Hct 42.4 % (37-53) 01/20/25 13:33 MCV 99.3 fl (82-101) 01/20/25 13:33 MCH 33.3 pg (27-33) H 01/20/25 13:33 MCHC 33.5 g/dL (30-55) 01/20/25 13:33 RDW 14.5 % (12.1-15.1) 01/20/25 13:33 Plt Count 241 10^3/cmm (157-399) 01/20/25 13:33 MPV 8.4 fL (7.4-10.4) 01/20/25 13:33 Neut % (Auto) 72.4 % 01/20/25 13:33 Lymph % (Auto) 12.1 % 01/20/25 13:33 [place] % (Auto) 14.5 % 01/20/25 13:33 Eos % (Auto) 0.4 % 01/20/25 13:33 Baso % (Auto) 0.4 % 01/20/25 13:33 Neut # (Auto) 3.59 10^3/uL (1.8-7.7) 01/20/25 13:33 Lymph # (Auto) 0.6 10^3/uL (0.8-4.8) L 01/20/25 13:33 [place] # (Auto) 0.7 10^3/uL (0.2-0.9) 01/20/25 13:33 Eos # (Auto) 0.0 10^3/uL (0.0-0.8) 01/20/25 13:33 Baso # (Auto) 0.0 10^3/uL (0.0-0.1) 01/20/25 13:33 Nucleated RBC % (auto) 0 % 01/20/25 13:33 Nucleated RBCs # 0.0 /100WBC 01/20/25 13:33 Sodium 138 mmol/L (136-145) 01/20/25 13:33 Potassium 4.5 mmol/L (3.5-5.1) 01/20/25 13:33 Chloride 100 mmol/L (98-107) 01/20/25 13:33 Carbon Dioxide 27 mmol/L (22-29) 01/20/25 13:33 Anion Gap 15.5 (5-19) 01/20/25 13:33 BUN 10 mg/dL (8-23) 01/20/25 13:33 Creatinine 0.8 mg/dL (0.7-1.2) 01/20/25 13:33 GFR Calculation Not Reportable 01/20/25 13:33 Glucose 100 mg/dL (65-115) 01/20/25 13:33 Calculated Osmolality 285 mOsm/kg (285-295) 01/20/25 13:33 Calcium 9.1 mg/dL (8.5-10.5) 01/20/25 13:33 Total Bilirubin 0.6 mg/dL (0.15-1.2) 01/20/25 13:33 AST 28 U/L (0-40) 01/20/25 13:33 ALT 24 U/L (0-41) 01/20/25 13:33 Alkaline Phosphatase 120 U/L (40-130) 01/20/25 13:33 Total Protein 6.7 g/dL (6.6-8.7) 01/20/25 13:33 Albumin 3.7 g/dL (3.5-5.2) 01/20/25 13:33 Globulin 3.0 g/dL (1.3-4.6) 01/20/25 13:33 Lipase 11 U/L (13-60) L 01/20/25 13:33 Urine Color Yellow (Yellow) 01/20/25 13:50 Urine Appearance Clear (CLEAR) 01/20/25 13:50 Urine pH 6.5 (5-7) 01/20/25 13:50 Ur Specific [place] 1.007 (1.005-1.030) 01/20/25 13:50 Urine Protein Negative (Negative) 01/20/25 13:50 Urine Glucose (UA) Negative (Normal) 01/20/25 13:50 Urine Ketones Negative (Negative) 01/20/25 13:50 Urine Blood Negative (Negative) 01/20/25 13:50 Urine Nitrate Negative (Negative) 01/20/25 13:50 Urine Bilirubin Negative (Negative) 01/20/25 13:50 Urine Urobilinogen 0.2 mg/dL (Negative) 01/20/25 13:50 Ur Leukocyte Esterase Trace (Negative) A 01/20/25 13:50 Urine RBC 0-2 /hpf (0-2) 01/20/25 13:50 Urine WBC 0-5 /hpf (0-5) 01/20/25 13:50 Ur Squamous Epith Cells 0-5 /hpf (0-5) 01/20/25 13:50 Amorphous Sediment Not Reportable 01/20/25 13:50 Urine Bacteria None seen /hpf (NONE) 01/20/25 13:50 Hyaline Casts 0.81 /lpf 01/20/25 13:50 All radiology interpretation(s) finalized by discharge Discharge Plan Discharge Patient Disposition: Home Clinical Impression: Constipation, Bladder wall thickening Condition: Stable Prescriptions: New lactulose [Generlac] 10 gram/15 mL solution 30 ml PO Q2H 3 Days Qty: 1080 0RF Rx Instructions: until desired laxative effect No Action atorvastatin 40 mg tablet 40 mg PO QAM clopidogrel [Plavix] 75 mg tablet 75 mg PO QAM aspirin 81 mg tablet,delayed release (DR/EC) 81 mg PO QAM metoprolol tartrate 50 mg tablet 50 mg PO BID losartan 100 mg tablet 100 mg PO DAILY olanzapine 2.5 mg tablet 2.5 mg PO QPM omeprazole 20 mg capsule,delayed release(DR/EC) 20 mg PO DAILY budesonide-formoterol 160-4.5 mcg/actuation HFA aerosol inhaler 2 puff INHALATION BID Discharge Orders: Discharge ED (Routine); Ordered 01/20/25 Ordered By: Wei Fulton Referrals: Hollis Leach DO [Primary Care Provider] - Discharge Diet: Full LIquid Discharge Activity: Resume usual activity Patient Instructions: Constipation (ED), Opioid Safety, Pain Management Activity Restrictions/Additional Instructions: Thank you for choosing [facility] for your healthcare needs today. It is very important that you follow up as instructed or that you return to the Emergency Department should you have concerns or if your condition changes or worsens in any way. You were seen in the emergency room for complaint of abdominal pain laboratory test did not have any clinically significant findings. CT showed moderate constipation there is some thickening of bladder wall this is likely related to prostate. There is no evidence of infection in the urine at this time. He given lactulose to use to relieve your constipation symptoms follow-up with your primary care doctor. 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
[2025-01-20 13:39] LABS: Basophils % 0.4 %; Eosinophils % 0.4 %; Hematocrit 42.4 % (37-53); Lymphocytes # 0.6 10^3/uL (0.8-4.8); Lymphocytes % 12.1 %; Mean Corpuscular HGB Conc 33.5 g/dL (30-55); Mean Corpuscular Hemoglobin 33.3 pg (27-33); Mean Corpuscular Volume 99.3 fl (82-101); Mean Platelet Volume 8.4 fL (7.4-10.4); Monocytes # 0.7 10^3/uL (0.2-0.9); Monocytes % 14.5 %; Neutrophils # 3.59 10^3/uL (1.8-7.7); Neutrophils % 72.4 %; Nucleated Red Blood Cells % 0 %; Platelet Count 241 10^3/cmm (157-399); Red Blood Count 4.27 10^6/uL (3.85-5.65); Red Cell Distribution Width 14.5 % (12.1-15.1); White Blood Count 4.96 10^3/uL (3.29-11.43)
[2025-01-20 13:42] VITALS: BP 147/85; PULSE 75; O2SAT 98
--- NOTE | 2025-01-20 13:51 | CTR_ITS ---
PROCEDURE INFORMATION: Exam: CT Abdomen And Pelvis With Contrast Exam date and time: 01/20/2025 2:49 PM Age: 74 years old Clinical indication: Abdominal pain; Generalized; Additional info: Abd pain TECHNIQUE: Imaging protocol: Computed tomography of the abdomen and pelvis with contrast. Radiation optimization: All CT scans at this facility use at least one of these dose optimization techniques: automated exposure control; mA and/or kV adjustment per patient size (includes targeted exams where dose is matched to clinical indication); or iterative reconstruction. Contrast material: OMNIPAQUE 350; Contrast volume: 100 ml; Contrast route: INTRAVENOUS (IV); COMPARISON: CT chest w con* [id number] 05/05/2024 1:57 PM RADIATION DOSE METRICS: Total DLP (mGy-cm): 383.18 FINDINGS: Heart: Moderately sized pericardial effusion measuring up to 1.8 cm in thickness posteriorly. Mild hepatic steatosis. Calcified granulomas in the liver. Liver: Mild hepatic steatosis. Calcified granulomas. Gallbladder and biliary ducts: Probable cholelithiasis with a 5 mm stone the gallbladder neck region. No CT evidence of acute cholecystitis. No intrahepatic or extrahepatic biliary ductal dilatation. Pancreas: Normal. No ductal dilation. Spleen: Calcified granulomas throughout the spleen. Adrenal glands: Normal. No mass. Kidneys and ureters: No hydronephrosis or definite nephrolithiasis. Calcific foci in the renal emre bilaterally likely atherosclerotic plaques. Indeterminate hypoenhancing cortical lesion in the right kidney measuring 8 mm in diameter. No ureteral stones. Stomach and bowel: Unremarkable. No obstruction. No mucosal thickening. Appendix: No evidence of appendicitis. Intraperitoneal space: Unremarkable. No free air. No significant fluid collection. Vasculature: Diffuse atherosclerotic calcifications of the abdominal aorta and iliac arteries without aneurysm. Lymph nodes: Unremarkable. No enlarged lymph nodes. Urinary bladder: Mild to moderate diffuse urinary bladder wall thickening. Reproductive: Nonspecific moderate significant prostatic enlargement. the prostate measures 4.4 x 6.2 x 6.3 cm. Benign-appearing calcifications in the prostate gland. Bones/joints: Minimal levoscoliosis of the lumbar spine. Decreased osseous mineralization. Moderate multilevel degenerative changes of the lumbar spine. Soft tissues: Small fat containing right inguinal hernia. Postsurgical changes of prior hernia repair in the anterior abdominal wall. CT/CT abdomen pelvis w con* [id number] IMPRESSION: 1. Mild diffuse urinary bladder wall thickening which can be seen with cystitis or chronic outlet obstruction given presence of moderate prostatic enlargement. 2. Otherwise, no acute findings in the abdomen or pelvis. 3. Indeterminate hypoenhancing lesion in the right kidney measuring 8 mm. 4. Findings consistent with sequela of old granulomatous disease including calcified granulomas in the liver and spleen. 5. Moderately sized chronic pericardial effusion measuring up to 1.8 cm in thickness posteriorly. COMMENTS: Consistent with the [place] [employer]'s Incidental Findings Committee white paper (J Am Willa Radiol 2018): Any incidental renal lesion less than 1 cm or classified as too small to characterize, or any incidental cystic renal lesion characterized as simple-appearing, is likely benign. No follow-up imaging is recommended for these lesions per consensus recommendations based on imaging criteria.
[2025-01-20 13:59] LABS: Alanine Aminotransferase 24 U/L (0-41); Albumin Level 3.7 g/dL (3.5-5.2); Alkaline Phosphatase 120 U/L (40-130); Blood Urea Nitrogen 10 mg/dL (8-23); Calcium 9.1 mg/dL (8.5-10.5); Carbon Dioxide 27 mmol/L (22-29); Chloride 100 mmol/L (98-107); Creatinine Clr Calc Pharmacy 72.7729; Glucose 100 mg/dL (65-115); Osmolality Calculated 285 mOsm/kg (285-295); Sodium 138 mmol/L (136-145); Total Bilirubin 0.6 mg/dL (0.15-1.2); Total Protein 6.7 g/dL (6.6-8.7)
[2025-01-20 13:59] LABS: Bilirubin Urine Negative (Negative); Blood Urine Negative (Negative); Glucose Urine UA Negative (Normal); Ketones Urine Negative (Negative); Leukocyte Esterase Urine Trace (Negative); Nitrate Urine Negative (Negative); Protein Urine Negative (Negative); Specific Gravity, Urine 1.007 (1.005-1.030); Urine Appearance Clear (CLEAR); Urine Color Yellow (Yellow); Urobilinogen Urine 0.2 mg/dL (Negative); pH Urine 6.5 (5-7)
[2025-01-20 14:04] LABS: Add Urine Microscopic? YES; Bacteria Urine None Seen /hpf; Hyaline Casts Urine 0.81 /lpf; RBC Urine 0-2 /hpf (0-2); Squamous Epithelial Cell Urine 0-5 /hpf (0-5); WBC Urine 0-5 /hpf (0-5)
[2025-01-20 14:11] LABS: Anion Gap 15.5 (5-19); Aspartate Amino Transferase 28 U/L (0-40); Potassium 4.5 mmol/L (3.5-5.1)
[2025-01-20 14:14] LABS: Lipase 11 U/L (13-60)
[2025-01-20] MEDS: iohexol 350 mg/mL 500 mL Btl (per mL) IV (14:51)
[2025-01-20 15:23] VITALS: PULSE 74; O2SAT 94
[2025-01-20 16:54] VITALS: BP 146/81; PULSE 82; O2SAT 94
== END 2025-01-20 16:54 | disposition home or self-care (01) ==
PROVIDERS: Physician Assistant; Emergency Provider Family Medicine; PCP Internal Medicine
DX: K59.00 Constipation, unspecified (principal); N32.89 Other specified disorders of bladder; Z79.02 Long term (current) use of antithrombotics/antiplatelets; Z79.82 Long term (current) use of aspirin; F17.210 Nicotine dependence, cigarettes, uncomplicated; I10 Essential (primary) hypertension
CPT/HCPCS: 36415; 74177; 80053; 81001; 83690; 85025; 99285